=== PATIENT | male | born 1950 | race Caucasian/White ===

== ENCOUNTER 2016-07-30 10:21 | Outpatient (CLI) | payer OTHER | END 2016-07-30 10:22 | disposition home or self-care (01) | DX: Z51.81 Encounter for therapeutic drug level monitoring (principal); R53.83 Other fatigue ==

== ENCOUNTER 2016-08-29 10:49 | Outpatient (CLI) | payer OTHER, MEDICARE ==
[2016-08-29 14:02] LABS: CALCIUM 9.5 mg/dL (8.5-10.3); CREATININE 0.8 mg/dL (0.6-1.2); POTASSIUM 4.8 mmol/L (3.5-5.0)
== END 2016-08-29 23:59 | disposition home or self-care (01) ==
LOC: LAB.WCP 10:49
PROVIDERS: ATTEND Physician Assistant Medical
DX: Z51.81 Encounter for therapeutic drug level monitoring (principal)
CPT/HCPCS: 36415; 80048

== ENCOUNTER 2016-10-13 13:49 | Outpatient (CLI) | payer OTHER, MEDICARE | END 2016-10-13 13:50 | disposition home or self-care (01) | DX: G47.33 Obstructive sleep apnea (adult) (pediatric) (principal) ==

== ENCOUNTER 2016-12-11 13:35 | Outpatient (CLI) | payer OTHER, MEDICARE | END 2016-12-11 13:36 | disposition home or self-care (01) | LOC: SC 13:35 | PROVIDERS: ATTEND Nurse Practitioner Family | DX: G47.33 Obstructive sleep apnea (adult) (pediatric) (principal) | CPT/HCPCS: 99212; 99215 ==

== ENCOUNTER 2017-01-02 15:03 | Outpatient (CLI) | payer MEDICARE, OTHER ==
[2017-01-02 19:19] LABS: BASOPHILS % (AUTO) 0.6 %; EOSINOPHILS % (AUTO) 0.9 %; HCT - HEMATOCRIT 38.1 % (42.0-52.0); HGB - HEMOGLOBIN 12.8 g/dL (14.0-18.0); LYMPHOCYTES # (AUTO) 0.6 10^3/uL (1.5-3.5); LYMPHOCYTES % (AUTO) 11.8 %; MEAN CORPUSCULAR HEMOGLOBIN 30.7 pg (27.0-31.0); MEAN CORPUSCULAR HGB CONC 33.6 g/dL (32.0-36.0); MEAN CORPUSCULAR VOLUME 91.5 fL (80.0-94.0); MEAN PLATELET VOLUME 9.2 fL (7.4-11.4); MONOCYTES # (AUTO) 0.4 10^3/uL (0.0-1.0); MONOCYTES % (AUTO) 6.9 %; NEUTROPHILS # (AUTO) 4.3 10^3/uL (1.5-6.6); NEUTROPHILS % (AUTO) 79.8 %; NUCLEATED RED BLOOD CELLS AUTO 0.3 /100WBC; RED BLOOD COUNT 4.17 10^6/uL (4.70-6.10); RED CELL DISTRIBUTION WIDTH 13.3 % (12.0-15.0); UNCORRECTED WHITE BLOOD COUNT 5.4 x10^3/uL; WHITE BLOOD COUNT 5.4 x10^3/uL (4.8-10.8)
[2017-01-02 19:41] LABS: ALBUMIN/GLOBULIN RATIO 1.1 (1.0-2.2); BILIRUBIN,TOTAL 0.7 mg/dL (0.2-1.0); CALCIUM 9.4 mg/dL (8.5-10.3); POTASSIUM 4.4 mmol/L (3.5-5.0); TOTAL PROTEIN 7.7 g/dL (6.7-8.2)
== END 2017-01-02 15:04 | disposition home or self-care (01) ==
LOC: LAB.WCP 15:03
PROVIDERS: ATTEND Physician Assistant Medical
DX: Z51.81 Encounter for therapeutic drug level monitoring (principal)
CPT/HCPCS: 36415; 80053; 85025

== ENCOUNTER 2017-04-23 22:08 | Outpatient (CLI) | payer MEDICARE, OTHER | END 2017-04-23 22:09 | disposition home or self-care (01) | LOC: SC 22:08 | PROVIDERS: ATTEND Internal Medicine Pulmonary Disease | DX: G47.33 Obstructive sleep apnea (adult) (pediatric) (principal); G47.61 Periodic limb movement disorder | CPT/HCPCS: 95811 ==

== ENCOUNTER 2018-01-07 08:36 | Outpatient (CLI) | payer OTHER, MEDICARE ==
[2018-01-07 12:41] LABS: ALBUMIN 4.3 g/dL (3.2-5.5); ALBUMIN/GLOBULIN RATIO 1.5 (1.0-2.2); ALKALINE PHOSPHATASE 93 IU/L (42-121); ALT ALANINE AMINOTRANSFERASE 41 IU/L (10-60); AST ASPARTATE AMINOTRANSFERASE 33 IU/L (10-42); BILIRUBIN,TOTAL 0.8 mg/dL (0.2-1.0); BUN - BLOOD UREA NITROGEN 18 mg/dL (6-20); CALCIUM 9.2 mg/dL (8.5-10.3); CARBON DIOXIDE - CO2 30 mmol/L (21-32); CHLORIDE 101 mmol/L (101-111); CHOL/HDL RATIO 3.8 (<5.0); CHOLESTEROL 138 mg/dL; CREATININE 0.9 mg/dL (0.6-1.2); GFR - MDRD 84 (>89); GLUCOSE 143 mg/dL (70-100); HDL CHOLESTEROL 36 mg/dL; LDL CHOLESTEROL,CALCULATED 78 mg/dL; LDL/HDL RATIO 2.2 (<3.6); SODIUM 137 mmol/L (135-145); TOTAL PROTEIN 7.2 g/dL (6.7-8.2); VLDL CHOLESTEROL 24 mg/dL
[2018-01-07 13:02] LABS: BASOPHILS % (AUTO) 0.7 %; EOSINOPHILS # (AUTO) 0.1 10^3/uL (0.0-0.7); EOSINOPHILS % (AUTO) 1.9 %; LYMPHOCYTES % (AUTO) 21.9 %; MEAN CORPUSCULAR HEMOGLOBIN 32.3 pg (27.0-31.0); MEAN CORPUSCULAR HGB CONC 35.2 g/dL (32.0-36.0); MEAN CORPUSCULAR VOLUME 91.6 fL (80.0-94.0); MEAN PLATELET VOLUME 9.6 fL (7.4-11.4); MONOCYTES # (AUTO) 0.5 10^3/uL (0.0-1.0); MONOCYTES % (AUTO) 9.6 %; NEUTROPHILS # (AUTO) 3.1 10^3/uL (1.5-6.6); NEUTROPHILS % (AUTO) 65.9 %; PLT - PLATELET COUNT 152 10^3/uL (130-450); RED BLOOD COUNT 4.03 10^6/uL (4.70-6.10); RED CELL DISTRIBUTION WIDTH 13.7 % (12.0-15.0); WHITE BLOOD COUNT 4.8 x10^3/uL (4.8-10.8)
[2018-01-07 13:34] LABS: HB2 TOTAL 13.5 g/dL; HEMOGLOBIN A1C 0.64 g/dL; HEMOGLOBIN A1C % 6.5 % (4.6-6.2)
== END 2018-01-07 08:37 ==
LOC: LAB.WCP 08:36
PROVIDERS: ATTEND Family Medicine
DX: R74.8 Abnormal levels of other serum enzymes (principal); E78.5 Hyperlipidemia, unspecified; R73.09 Other abnormal glucose; K27.9 Peptic ulcer, site unspecified, unspecified as acute or chronic, without hemorrhage or perforation
CPT/HCPCS: 36415; 80053; 80061; 83036; 83721; 85025

== ENCOUNTER 2018-03-17 08:00 | Outpatient (CLI) | payer OTHER, MEDICARE ==
[2018-03-17 21:16] LABS: H. PYLORIS ANTIGEN STL NEGATIVE (Negative)
== END 2018-03-17 23:59 | disposition home or self-care (01) ==
LOC: LAB.WCP 08:00
PROVIDERS: ATTEND Physician Assistant
DX: R19.7 Diarrhea, unspecified (principal)
CPT/HCPCS: 81599; 83630; 87045; 87046; 87177; 87209; 87338; 87493; 89055

== ENCOUNTER 2018-06-07 08:00 | Outpatient (CLI) | payer OTHER, MEDICARE | END 2018-06-07 23:59 | disposition home or self-care (01) | LOC: LAB.R 08:00 | PROVIDERS: ATTEND Family Medicine | DX: Z51.81 Encounter for therapeutic drug level monitoring (principal); Z79.891 Long term (current) use of opiate analgesic | CPT/HCPCS: 80307; 80361; 80365; 81599 ==

== ENCOUNTER 2018-07-22 10:24 | Outpatient (CLI) | payer OTHER, MEDICARE ==
--- NOTE | 2018-07-22 10:43 | XRAY Report ---
Reason: ABDOMINAL PAIN Procedure Date: 07/22/2018 Accession Number: [id number] / [id number] Procedure: WCP - Abdomen 1 View X-Ray CPT Code: 26536 FULL RESULT: EXAM: ABDOMEN RADIOGRAPHY EXAM DATE: 07/22/2018 10:37 AM. CLINICAL HISTORY: ABDOMINAL PAIN. COMPARISON: ABDOMEN 1 VIEW 07/24/2017 8:25 AM. TECHNIQUE: 1 view. FINDINGS: Bowel Gas Pattern: Nonspecific small and large bowel gas pattern. Large amount of generalized retained stool. Other: None. IMPRESSION: 1. Large amount of generalized retained stool. 2. Otherwise negative examination. RADIA
== END 2018-07-22 10:25 | disposition home or self-care (01) ==
LOC: DI.WCP 10:24
PROVIDERS: ATTEND Family Medicine
DX: R10.9 Unspecified abdominal pain (principal)
CPT/HCPCS: 74018

== ENCOUNTER 2018-10-28 10:58 | Outpatient (CLI) | payer OTHER, MEDICARE | END 2018-10-28 10:59 | disposition home or self-care (01) | LOC: SC 10:58 | PROVIDERS: ATTEND Nurse Practitioner Family | DX: G47.33 Obstructive sleep apnea (adult) (pediatric) (principal); G47.61 Periodic limb movement disorder | CPT/HCPCS: 99212; 99215 ==

== ENCOUNTER 2018-11-12 08:00 | Outpatient (CLI) | payer OTHER, MEDICARE ==
[2018-11-12 18:54] LABS: BASOPHILS % (AUTO) 0.7 %; EOSINOPHILS # (AUTO) 0.1 10^3/uL (0.0-0.7); EOSINOPHILS % (AUTO) 2.2 %; LYMPHOCYTES # (AUTO) 0.9 10^3/uL (1.5-3.5); LYMPHOCYTES % (AUTO) 19.7 %; MEAN CORPUSCULAR HEMOGLOBIN 30.7 pg (27.0-31.0); MEAN CORPUSCULAR HGB CONC 32.6 g/dL (32.0-36.0); MEAN CORPUSCULAR VOLUME 94.3 fL (80.0-94.0); MEAN PLATELET VOLUME 12.1 fL (7.4-11.4); MONOCYTES # (AUTO) 0.5 10^3/uL (0.0-1.0); MONOCYTES % (AUTO) 11.1 %; NEUTROPHILS # (AUTO) 3.1 10^3/uL (1.5-6.6); NEUTROPHILS % (AUTO) 66.1 %; PLT - PLATELET COUNT 155 10^3/uL (130-450); RED BLOOD COUNT 4.23 10^6/uL (4.70-6.10); RED CELL DISTRIBUTION WIDTH 12.8 % (12.0-15.0); WHITE BLOOD COUNT 4.6 x10^3/uL (4.8-10.8)
[2018-11-12 19:09] LABS: ALBUMIN 4.1 g/dL (3.2-5.5); ALBUMIN/GLOBULIN RATIO 1.4 (1.0-2.2); BILIRUBIN,TOTAL 0.5 mg/dL (0.2-1.0); CALCIUM 9.4 mg/dL (8.5-10.3); CREATININE 0.9 mg/dL (0.6-1.2); TOTAL PROTEIN 7.1 g/dL (6.7-8.2)
== END 2018-11-12 08:01 | disposition home or self-care (01) ==
LOC: LAB.WCP 08:00
PROVIDERS: ATTEND Psychiatry & Neurology Neurology
DX: G35 Multiple sclerosis (principal)
CPT/HCPCS: 36415; 80053; 85025

== ENCOUNTER 2018-11-25 08:00 | Outpatient (CLI) | payer OTHER, MEDICARE ==
[2018-11-25 12:31] LABS: HEMOGLOBIN A1C 0.62 g/dL; HEMOGLOBIN A1C % 6.2 % (4.6-6.2)
[2018-11-25 12:47] LABS: ALBUMIN 4.2 g/dL (3.2-5.5); ALBUMIN/GLOBULIN RATIO 1.3 (1.0-2.2); ALKALINE PHOSPHATASE 82 IU/L (42-121); ALT ALANINE AMINOTRANSFERASE 29 IU/L (10-60); AST ASPARTATE AMINOTRANSFERASE 29 IU/L (10-42); BILIRUBIN,TOTAL 0.3 mg/dL (0.2-1.0); BUN - BLOOD UREA NITROGEN 24 mg/dL (6-20); CALCIUM 9.4 mg/dL (8.5-10.3); CARBON DIOXIDE - CO2 28 mmol/L (21-32); CHLORIDE 105 mmol/L (101-111); CHOL/HDL RATIO 3.1 (<5.0); CHOLESTEROL 122 mg/dL; GFR - MDRD 75 (>89); GLUCOSE 151 mg/dL (70-100); HDL CHOLESTEROL 39 mg/dL; LDL CHOLESTEROL,CALCULATED 46 mg/dL; LDL/HDL RATIO 1.2 (<3.6); SODIUM 141 mmol/L (135-145); TOTAL PROTEIN 7.4 g/dL (6.7-8.2); VLDL CHOLESTEROL 37 mg/dL
== END 2018-11-25 23:59 | disposition home or self-care (01) ==
LOC: LAB.WCP 08:00
PROVIDERS: ATTEND Family Medicine
DX: E11.9 Type 2 diabetes mellitus without complications (principal); E78.5 Hyperlipidemia, unspecified
CPT/HCPCS: 36415; 80053; 80061; 83036; 83721

== ENCOUNTER 2018-12-16 08:38 | Outpatient (CLI) | payer OTHER, MEDICARE ==
[2018-12-16 10:36] VITALS: BP 110/60
--- NOTE | 2018-12-16 10:36 | SLEEP CARE CONSULTATION ---
Information from patient questionnaire entered by Lillie Arthur. I have reviewed and concur with the information entered by Lillie Arthur. This document represents the service I personally performed and the decisions made by me, Althea Adan, RN, MSN, NURSING HOME DIRECTOR. History of Present Illness Previous diagnosis: Severe, Obstructive Sleep Apnea-Hypopnea Syndrome AHI: 46.5 Reason for CPAP/BiPAP follow up: other (2 month) Equipment type: BiPAP Equipment obtained from: [employer] (No supplies since transfer despite twice a week calls /with several explainations for delay even though now confirmed that insurance has authorized etc.) Mask style: Full face Mask brand: Resmed Backup mask available: No Last cushion change: 6 months ago HPI additional information: Patient voiced frustrations in trying to get his CPAP supplies updated with [facility] whom he transferred to since he had been getting his oxygen there since 2014. He has made calls a couple times a week with promise it will be taken care of. He is considering transferring to new company to get supplies. He is working on diet modification to lose weight as has gained 20 pounds since last seen at prior visit. His weight is stable with better diet choices but no weight loss. The BiPAP pressure was changed as recommended by the titration study. The pressure change is comfortable and able to sleep longer at times. CPAP Compliance Data - Data Reviewed with Patient Average duration of nightly device use: 5.75 Compliance rate %: 76.7 Current pressure setting (cmH2O): 23/17 Humidity settin Average residual AHI: 8.2 Central apnea: 5.5 Obstructive apnea: 1.1 Hypopnea: 1.6 Average large leak: 1 min 25 secs Subjective Missed days of use due to: reports: other (short nights due to exacerbation of nasal congestion with inability to use CPAP due to oral dryness from oral breathing. He has dry mouth 27/10. ) Patient concerns: reports: mask discomfort (from tightening old mask to control mask leaks), air blowing in eyes (forgot to use get eye cover, no worse with higher pressure. ), mask leak noise (wakes to noise 4-5 times a night from him waking or his spouse waking to leaks. ), nasal congestion (chronic), dry mouth, nose, throat (chronic worse with CPAP use ), other (So clean device has been helpful to patient ). denies: aerophagia, condensation in mask/hose, epistaxis Observed to snore while using device: No Current pressure setting perceived as: comfortable On therapy, patient: reports: sleeping better, awakening more refreshed (when able to get 8 hours of sleep. ), being more awake and alert during the day, more rested overall (but has residual fatigue). denies: drowsiness while driving Initial [place] Sleepiness Scale score: 13 Current [place] Sleepiness Scale score: 8 Allergies and Home Medications Allergy and home medication list: Medication Name (generic/name brand) Strength & Dosage Terazosin 10mg cap 1 at bedtime Baclofen 10mg tab 1 three times daily for muscle spasm Lyrica 200mg cap 1 three times daily Lipitor 20mg tab 1 at bedtime Venlafaxine HCL ER 225mg tab 1 daily Omeprazole 20mg cap 1 daily Zofran 4mg tab 1 every 6 hrs as needed for nausea Ibuprofen 200mg tab 2-3 every 6 hrs as needed for pain Tylenol 325mg tab 2 three times daily as needed for pain or fever Hydromorphone HCL 4mg tab 2 twice daily for chronic pain Maxalt 10mg tab as direct, no more than 2 daily Afrin nasal spray As needed Lidocaine HCL As directed via IV every 5 days Ketamine HCL 50mg/ml via IV every 7 days Symbicort 160-4.5 mcg/act 2 puffs twice daily Albuterol Sulfate 0.083% 1 ampule 1 times daily as needed for SOB Mucinex As needed Allergy List Perfume Seasonal allergies Adhesive Tape Review of Systems Review of systems same as previous: Yes Physical Exam Blood Pressure: 110/60 Cuff size: long Heart Rate: 85 O2 Saturation: 96 (on 2 liters per nasal cannual ) Weight (kg): 265 lb Impression and Plan 1. Obstructive Sleep Apnea-Hypopnea Syndrome,severe , with good treatment compliance and mildly elevated residual AHI. On BiPAP therapy, the patient has better sleep quality and is more rested overall. For oral dryness that is interferring with BiPAP use, I again reviewed dryness products and gave a note with names. He believes some of oral dryness is due to oral breathing due to nasal congestion. He is to discuss with his dentist on best oral dryness product to use and given reminder note. For nasal congestion, he uses sinus rinse and a variety of nasal sprays. The sinus rinse seems to work the best but only remembers to do 2-3 times a week. He is advised to try to do this nightly and perhaps in the morning to reduce nasal congestion and oral breathing. Since he reports nasal drainage for a while after sinus rinse, he wants to incorporate earlier in evening, thus advised to complete after dinner so more comfortable with sinus drainage by bedtime. He can also add morning rinse after breakfast for same reason. He is also to discuss his nasal congestion with new PCP to see if another nasal spray medication product better than previously tried. Oral dryness with BiPAP could also be due inability to use the humidity of his BiPAP due to leaking humidifier. Patient has been unable to get updated supplies since May despite transfer to [facility] and repeated calls. It is unclear when he will get new supplies. I will have product inspection coordinator reach out to [facility]. Otherwise, patient wants to transfer to new [facility]. Because of difficulty getting supplies, I completed a mask refitting with sample mask as current mask uncomfortable, leaking into eyes causing eye irritation.The Acquisiowear full face mask sits lower on nose and seemed more comfortable to patient than current mask with a medium wide cushion. He is instructed not to overtighten and greg best fit when home. A prescription for refill was written. For elevated residual AHI, mostly centrals, I will reduce BiPAP pressure to [id number]/[id number]. He is to contact me if pressure is uncomfortable. So far the higher pressure range has allowed him to sleep longer. Patient's apnea severity and rationale for treatment to reduce apnea, improve sleep quality and reduce cardiovascular and cerebrovascular events was reviewed. I also reviewed the benefit of consistent device use of BiPAP for depression. . I again reviewed health risks of obesity and his weight to apnea management. His change in eating healthier has maintained his weight but now he is advised to work on reducing portions. * Change BiPAP pressure to 22/16 cmH2O * Notify me if snoring with mask or feeling that the pressure is too much or too little * Attempt to lose weight - portion control * Follow up with PCP in regard to nasal congestion * Follow with dentist re oral dryness * Return for follow up in 2 months, or sooner if concerns arise * * Addendum: My Discharge coodinator was able to contact [facility] and assured patient would obtain supplies. Their supply prescription was faxed and signed by me. I spent 100% of this 50 minute visit face to face with the patient with greater than 50% of this was spent time counseling the patient and coordination of care.
== END 2018-12-16 08:39 | disposition home or self-care (01) ==
LOC: SC 08:38
PROVIDERS: ATTEND Nurse Practitioner Family
DX: G47.33 Obstructive sleep apnea (adult) (pediatric) (principal)
CPT/HCPCS: 99212; 99215

== ENCOUNTER 2019-02-17 09:16 | Outpatient (CLI) | payer OTHER, MEDICARE ==
[2019-02-17 10:29] VITALS: BP 140/70
--- NOTE | 2019-02-17 10:29 | SLEEP CARE CONSULTATION ---
Information from patient questionnaire entered by Lillie Arthur. I have reviewed and concur with the information entered by Lillie Arthur. This document represents the service I personally performed and the decisions made by me, Althea Adan, RN, MSN, CURRICULUM COORDINATOR. History of Present Illness Previous diagnosis: Severe, Obstructive Sleep Apnea-Hypopnea Syndrome AHI: 46.5 Reason for follow up: other (2 month) Equipment type: BiPAP Equipment obtained from: [employer] Mask style: Full face Mask brand: Resmed HPI additional information: He did discuss oral dryness with dentist and ordered the product online with some benefit only. He has been using sinus rinse most days with benefit. He has reduced nasal sprays due to nasal irritation and nose bleed. This practice has lessened occurrence to weekly. He uses a nasal cream most days for dryness. Other days he uses Vicks nasal cream occasionally to help with nasal congestion. He talked to PCP - re nasal congestion, no changes. ENT is next if indicated. He had to switch back to old mask style as the PocketSuitewear full face mask was too noisy for spouse but he liked the fit better. He was just sent the Air fit full face mask. The eye mask has reduced eye irritation from mask irritation. CPAP Compliance Data - Data Reviewed with Patient Average duration of nightly device use: 5.5 Compliance rate %: 60 (60 days) Current pressure setting (cmH2O): 22/16 Humidity settin Heated hose settin Average residual AHI: 6.6 Central apnea: 4.2 Obstructive apnea: 1.0 Hypopnea: 1.4 Subjective Missed days of use due to: reports: illness (gastrointenstinal virus / intermittent diarrhea a few days - evaluated - no cause. ) Patient concerns: reports: air blowing in eyes (reduced with eye mask ), nasal congestion (chronic), dry mouth, nose, throat. denies: aerophagia, mask discomfort, mask leak noise, condensation in mask/hose, epistaxis Observed to snore while using device: No Current pressure setting perceived as: comfortable On therapy, patient: reports: sleeping better, awakening more refreshed, being more awake and alert during the day, more rested overall. denies: drowsiness while driving Initial [place] Sleepiness Scale score: 13 Current [place] Sleepiness Scale score: 10 Allergies and Home Medications Known drug allergies: No Home medication list reviewed: Yes Allergy and home medication list: Terazosin 10mg cap 1 at bedtime Baclofen 10mg tab 1 three times daily for muscle spasm Lyrica 200mg cap 1 three times daily Lipitor 20mg tab 1 at bedtime Venlafaxine HCL ER 225mg tab 1 daily Omeprazole 20mg cap 1 daily Zofran 4mg tab 1 every 6 hrs as needed for nausea Ibuprofen 200mg tab 2-3 every 6 hrs as needed for pain Tylenol 325mg tab 2 three times daily as needed for pain or fever Hydromorphone HCL 4mg tab 2 twice daily for chronic pain Maxalt 10mg tab as direct, no more than 2 daily Afrin nasal spray As needed Lidocaine HCL As directed via IV every 5 days Ketamine HCL 50mg/ml via IV every 7 days Symbicort 160-4.5 mcg/act 2 puffs twice daily Albuterol Sulfate 0.083% 1 ampule 1 times daily as needed for SOB Mucinex As needed Allergy List Perfume Adhesive Tape Seasonal allergies Review of Systems Review of systems same as previous: No (changes in blood studies from ) Physical Exam Blood Pressure: 140/70 Cuff size: long Heart Rate: 89 O2 Saturation: 98 (on 2 liters oxygen) Height: 5 ft 11 in Weight: 264 lb Body Mass Index: 36.8 BMI Classification: Obesity Class 2 Impression and Plan 1. Obstructive Sleep Apnea-Hypopnea Syndrome, severe, with fair treatment compliance due to illness and better apnea control. On BiPAP therapy, the patient has better sleep quality and is more rested overall. HIs residual AHI is lower with lower BiPAP pressure. I will continue to lower range to reduce the central apneas to 20/[id number].. He is to contact me if pressure change uncomfortable. For severe oral dryness, I showed him how to increase the humidity and only increase heated hose if condensation on a sample device. Web printed instructions given and discussed rationale for changing settings. I showed him how he has changed settings in past on his complaince report and how it affects his symptoms. The higher humidity can also help reduce his nasal congestion. The lower pressure should reduce mask leaks as well. It is hoped his new mask will also help. His favorite Dreamwear fullface mask that is too noisy for spouse will be put on his old BiPAP in guest room to use when he needs to sleep separately due to discomfort. Patient's apnea severity and rationale for treatment to reduce apnea, improve sleep quality and reduce cardiovascular and cerebrovascular events was reviewed. I also reviewed the benefit of consistent device use of BiPAP for his depression/anxiety, and his pain management. 2. Hypoxemia. Patient has oxygen bled into his BiPAP at 5 liters per minute. He uses oxygen 24 hours a day and the liters are reduced to 2 liters during waking hours. I will order an overnight pulse oximetry with his new BiPAP pressure to check efficacy. * * Change BiPAP pressure to 20/14 cmH2O * Adjust humidity and heated hose. * Overnight pulse oximetry with BiPAP new pressure and oxygen at 5 liters ( n ight use- 2 liters when not sleeping0 * Notify me if snoring with mask or feeling that the pressure is too much or too little * Attempt to lose weight * Return for follow up in 2 months , or sooner if concerns arise I spent 100% of this 43 minute visit face to face with the patient with greater than 50% of this was spent time counseling the patient and coordination of care.
== END 2019-02-17 09:17 | disposition home or self-care (01) ==
LOC: SC 09:16
PROVIDERS: ATTEND Nurse Practitioner Family
DX: G47.33 Obstructive sleep apnea (adult) (pediatric) (principal); R09.02 Hypoxemia
CPT/HCPCS: 99212; 99215

== ENCOUNTER 2019-04-21 10:48 | Outpatient (CLI) | payer OTHER, MEDICARE ==
[2019-04-21 11:53] VITALS: BP 120/80
--- NOTE | 2019-04-21 11:53 | SLEEP CARE CONSULTATION ---
Information from patient questionnaire entered by Lillie Arthur. I have reviewed and concur with the information entered by Lillie Arthur. This document represents the service I personally performed and the decisions made by me, Althea Adan, RN, MSN, PLUGGING MACHINE OPERATOR. History of Present Illness Previous diagnosis: Severe, Obstructive Sleep Apnea-Hypopnea Syndrome AHI: 46.5 Reason for follow up: other (2 month ) Equipment type: BiPAP Equipment obtained from: [employer] Mask style: Full face Mask brand: Resmed HPI additional information: The new BiPAP pressure was more comfortable to use and has reduced eye irritation significantly. He has noted since his rhinoplasty he can feel air blow into his eyes when he blows his nose hard. Thus he was noting increase of air leak into eyes with higher pressure. He adjusted his humidity to maximum and his heated hose higher with recent snow weather. He has noted less dryness symptoms. CPAP Compliance Data - Data Reviewed with Patient Average duration of nightly device use: 6.2 Compliance rate %: 78.3 (60 days) Current pressure setting (cmH2O): 20/14 Humidity settin Heated hose settin Average residual AHI: 9.2 Central apnea: 4.8 Obstructive apnea: 2.5 Hypopnea: 1.9 Average large leak: zero On Oxygen: Yes (2 liters day / 5 liters nocturnal with BiPAP) Oxygen usage: Continuous Subjective Missed days of use due to: reports: illness (due to nasal congestion but even with oral dryness and full face mask - unable to tolerate) Patient concerns: reports: air blowing in eyes (occasional now - wears a eye mask ), nasal congestion (chronic affecting CPAP use, not always assisted with saline or Afrin nasal spray ( aware not to use Afrin more than 3 days). ), dry mouth, nose, throat (mild to moderate - no longer severe ). denies: aerophagia, mask discomfort, mask leak noise, condensation in mask/hose, epistaxis Observed to snore while using device: No Current pressure setting perceived as: comfortable On therapy, patient: reports: sleeping better, awakening more refreshed, being more awake and alert during the day, more rested overall (with underlying fatigue. ) Initial [place] Sleepiness Scale score: 13 Current [place] Sleepiness Scale score: 11 Allergies and Home Medications Known drug allergies: Yes (tape ) Home medication list reviewed: Yes ( 3 added that not present on past visit list noted below/no other changes ) Allergy and home medication list: Medications same as last visit with addition of the following which were not included but patient states has been on. Tecfidera 240mg bid finasteride 5mg daily aspirin 81mg daily multivitamin with iron ( PCP aware - patient aware to take only if deficient in iron) Review of Systems Review of systems same as previous: Yes Physical Exam Blood Pressure: 120/80 Cuff size: long Heart Rate: 73 O2 Saturation: 97 (on 2 liters of oxygen continuously ) Height: 5 ft 11 in Weight: 270 lb 9.6 oz Weight change since last visit: gained 6 pounds Body Mass Index: 37.7 BMI Classification: Obesity Class 2 Impression and Plan 1. Obstructive Sleep Apnea-Hypopnea Syndrome, severe, with good treatment compliance and slightly elevated residual AHI. On BiPAP therapy, the patient has better sleep quality and is more rested overall. The BiPAP pressure is more comfortable at this pressure in air flow and by significantly reducing eye irritation so I will not adjust further. For his oral dryness, until he can update his BiPAP in late November which has a better humidity system, I discussed how he could turn off the heated hose if no condensation to allow the humidity setting higher to 4-5. Recent adjustments have reduced his oral dryness from severe to mild- moderate. Since his nasal congestion affecting BiPAP use intermittently and current treatments and medications not always helpful, I advised him to follow up with PCP to discuses other medication options. He has appointment tomorrow and will discuss then. Until then on the nights of exacerbation of nasal congestion he is to try the higher humidity setting with no heated hose and / steamy shower. Patient's apnea severity and rationale for treatment to reduce apnea, improve sleep quality and reduce cardiovascular and cerebrovascular events was reviewed. I also reviewed the benefit of consistent device use of CPAP for depression and pain management. To reduce time in recording of medications at patient intake, he is advised to make a printed copy to take to his providers for ease of review for changes. He agreed with plan. 2. Hypoxemia, patient uses oxygen at 2 liters per nasal cannula while awake and at 5 liters while asleep with BiPAP. The over night pulse oximetry was not completed as ordered at last visit . I will again order and have patient contact this office if no response from [facility]. * Continue CPAP pressure at BiPAP pressure at 20/14 cmH2O * Update Bipap in 6 months at next follow up * Over night pulse oximetry with BiPAP / O2 * Implement methods to reduce nasal congestion. * Follow up with PCP for further evaluation of nasal congestion and treatment * Notify me if snoring with mask or feeling that the pressure is too much or too little * Attempt to lose weight * Call this office if any problems using CPAP * Return for follow up in 6 months , or sooner if concerns arise Time Spent with Patient (minutes): 40 I spent 100% of this visit face to face with the patient with greater than 50% of this was spent time counseling the patient and coordination of care.
== END 2019-04-21 10:49 | disposition home or self-care (01) ==
LOC: SC 10:48
PROVIDERS: ATTEND Nurse Practitioner Family
DX: G47.33 Obstructive sleep apnea (adult) (pediatric) (principal); R09.02 Hypoxemia; E66.9 Obesity, unspecified; Z68.37 Body mass index [BMI] 37.0-37.9, adult
CPT/HCPCS: 99212; 99215

== ENCOUNTER 2019-04-22 08:00 | Outpatient (CLI) | payer OTHER, MEDICARE ==
[2019-04-22 18:32] LABS: BASOPHILS % (AUTO) 0.5 %; EOSINOPHILS # (AUTO) 0.1 10^3/uL (0.0-0.7); EOSINOPHILS % (AUTO) 2.5 %; HGB - HEMOGLOBIN 13.4 g/dL (14.0-18.0); MEAN CORPUSCULAR HEMOGLOBIN 30.6 pg (27.0-31.0); MEAN CORPUSCULAR HGB CONC 32.6 g/dL (32.0-36.0); MEAN CORPUSCULAR VOLUME 93.8 fL (80.0-94.0); MEAN PLATELET VOLUME 11.1 fL (7.4-11.4); MONOCYTES # (AUTO) 0.4 10^3/uL (0.0-1.0); MONOCYTES % (AUTO) 7.9 %; NEUTROPHILS % (AUTO) 71.7 %; PLT - PLATELET COUNT 188 10^3/uL (130-450); RED BLOOD COUNT 4.38 10^6/uL (4.70-6.10); RED CELL DISTRIBUTION WIDTH 12.8 % (12.0-15.0); WHITE BLOOD COUNT 5.6 x10^3/uL (4.8-10.8)
[2019-04-22 19:00] LABS: ALBUMIN 4.4 g/dL (3.2-5.5); ALBUMIN/GLOBULIN RATIO 1.4 (1.0-2.2); BILIRUBIN,TOTAL 0.5 mg/dL (0.2-1.0); CALCIUM 9.3 mg/dL (8.5-10.3); CREATININE 1.1 mg/dL (0.6-1.2); TOTAL PROTEIN 7.6 g/dL (6.7-8.2)
== END 2019-04-22 23:59 | disposition home or self-care (01) ==
LOC: LAB.WCP 08:00
PROVIDERS: ATTEND Nurse Practitioner Family
DX: Z51.81 Encounter for therapeutic drug level monitoring (principal); Z79.899 Other long term (current) drug therapy
CPT/HCPCS: 36415; 80053; 85025

== ENCOUNTER 2019-10-06 10:45 | Outpatient (CLI) | payer OTHER, MEDICARE ==
--- NOTE | 2019-10-06 12:28 | XRAY Report ---
Reason: DYSPNEA ON EXERTION Procedure Date: 10/06/2019 Accession Number: [id number] / [id number] Procedure: WCP - Chest 2 View X-Ray CPT Code: 66930 Final Report FULL RESULT: PROCEDURE: Chest 2 View X-Ray INDICATIONS: DYSPNEA ON EXERTION TECHNIQUE: 2 view(s) of the chest. COMPARISON: None. FINDINGS: Surgical changes and devices: Left tunneled port device is in place. Lungs and pleura: No pleural effusions or pneumothorax. Lungs are clear. Mediastinum: Mediastinal contours are normal. Heart size is normal. Bones and chest wall: No suspicious bony abnormalities. Soft tissues appear unremarkable. IMPRESSION: Chest without acute cardiopulmonary abnormalities. No focal consolidation. Reviewed by: Garo Park MD on 10/06/2019 12:27 PM PDT Approved by: Garo Park MD on 10/06/2019 12:27 PM PDT Station ID: [id number]
== END 2019-10-06 23:59 | disposition home or self-care (01) ==
LOC: DI.WCP 10:45
PROVIDERS: ATTEND Family Medicine
DX: R06.09 Other forms of dyspnea (principal)
CPT/HCPCS: 71046

== ENCOUNTER 2019-10-18 14:38 | Outpatient (CLI) | payer OTHER, MEDICARE ==
[2019-10-18] MEDS ORDERED: IOVERSOL 320 100 ML VIAL IVP ONE ×2 (14:50→16:03)
[2019-10-18] MEDS ORDERED: IOVERSOL 320 50 ML VIAL ONE (14:50)
[2019-10-18] MEDS ORDERED: IOVERSOL 320 50 ML VIAL PO ONE (16:02)
--- NOTE | 2019-10-18 17:37 | CT Report ---
PROCEDURE: ANGIO CHEST W/WO INDICATIONS: DYSPNEA CONTRAST: IV CONTRAST: Optiray 320 ml: 100 PO CONTRAST: Optiray 320 ml50 TECHNIQUE: After the administration of intravenous contrast, 2 mm thick sections acquired from the pulmonary api ronnie to the posterior costophrenic angles. 3-dimensional maximum intensity projection (MIP) coronal a nd sagittal reformats were then acquired through the thorax. For radiation dose reduction, the follow ing was used: automated exposure control, adjustment of mA and/or kV according to patient size. COMPARISON: CT chest 01/30/2016, chest x-ray 10/06/2019 FINDINGS: Image quality: Excellent. Pulmonary arteries: Pulmonary arteries are normal in size, and demonstrate no intraluminal filling d efects to suggest central pulmonary embolism. Lungs and pleura: Minimal chronic appearance of peripheral reticular opacities are present. There is an ill-defined nodularity within the medial left lower lobe on series 7 image 198. Although mild fior on was present within this region on prior exam, it is felt to have been present and is relatively un changed. No pleural effusions or pneumothorax. Central and peripheral airways are patent. Mediastinum: Heart size is normal, without pericardial effusion. No mediastinal or hilar adenopathy . Thoracic aorta is normal in caliber and enhancement. Esophagus is normal in caliber, with mild hi atal hernia. Bones and chest wall: No suspicious bony lesions. Ribs and thoracic spine appear intact throughout. The thyroid is normal. No axillary or supraclavicular adenopathy. Abdomen: Visualized upper abdominal solid organs appear normal in the early arterial phase of enhanc ement. IMPRESSION: 1. No pulmonary embolism identified. 2. Mild appearance of chronic reticular opacities suggestive of interstitial lung disease. 3. No consolidations or effusions. 4. Medial left lower lobe nodular opacity as above. While this appears likely to been present on prio r exam, due to motion, small changes are unable to be identified. Recommend three-month interval foll ow-up to document stability. Reviewed by: Angie Mckay MD on 10/18/2019 5:35 PM PDT Approved by: Angie Mckay MD on 10/18/2019 5:35 PM PDT Station ID: [id number]
--- NOTE | 2019-10-18 17:55 | CT Report ---
PROCEDURE: Abdomen/Pelvis W INDICATIONS: DYSPNEA CONTRAST: IV CONTRAST: Optiray 320 ml: 100 PO CONTRAST: Optiray 320 ml50 TECHNIQUE: After the administration of oral and intravenous contrast, 5 mm thick sections acquired from the diap hragms to the symphysis. 5 mm thick coronal and sagittal reformats were acquired. For radiation dos e reduction, the following was used: automated exposure control, adjustment of mA and/or kV accordin g to patient size. COMPARISON: None. FINDINGS: Image quality: Excellent. ABDOMEN: Lung bases: Separately reported on chest CT. Solid organs: Liver and spleen are normal in size and enhancement. Gallbladder is unremarkable Markos iary system is non dilated. Pancreas enhances normally. No adrenal nodules. Kidneys demonstrate no rmal size and enhancement, without hydronephrosis. Peritoneum and bowel: Bowel loops demonstrate normal wall thickness and caliber. Increased quantity of solid stool throughout colon and rectum. No free fluid or air. Nodes and vessels: No retroperitoneal or mesenteric adenopathy by size criteria. Aorta and inferior vena cava are normal in size. Miscellaneous: No ventral hernias. PELVIS: Genitourinary: Bladder wall thickness is normal. Miscellaneous: No inguinal hernias or adenopathy. Bones: No suspicious bony lesions. Near complete degenerative disc height loss at the L4-5 level. N o vertebral body compression fractures. IMPRESSION: 1. Increased quantity of solid stool throughout the colon may reflect obstipation. 2. No other acute process in the abdomen or pelvis. Reviewed by: Luz Rajan MD on 10/18/2019 5:54 PM PDT Approved by: Luz Rajan MD on 10/18/2019 5:54 PM PDT Station ID: [id number]
== END 2019-10-18 14:39 | disposition home or self-care (01) ==
LOC: DI 14:38
PROVIDERS: ATTEND Physician Assistant
DX: R06.00 Dyspnea, unspecified (principal); R10.30 Lower abdominal pain, unspecified; K43.9 Ventral hernia without obstruction or gangrene
CPT/HCPCS: 71275; 74177; Q9967

== ENCOUNTER 2019-11-14 12:02 | Day surgery (SDC) | payer OTHER, MEDICARE ==
[2019-11-14] MEDS ORDERED: KETAMINE 500 MG/10 ML VIAL IVP ONE (12:03)
[2019-11-14] MEDS ORDERED: MIDAZOLAM 2 MG/2 ML VIAL IVP ONE (12:03)
[2019-11-14] MEDS ORDERED: PROPOFOL 200 MG/20 ML VIAL IVP ONE (12:03)
[2019-11-14] MEDS ORDERED: LACTATED RINGERS 1,000 ML IV ONE ×2 (12:08→14:40)
[2019-11-14] MEDS ORDERED: LIDO GARGLE 30 ML BOTTLE ONE (13:33)
--- NOTE | 2019-11-14 13:35 | ANESTHESIA ---
Pre-Anesthesia VS, & Labs - Diagnosis gi bleed - Procedure egd/cscope Vital Signs: Temp Pulse Resp BP Pulse Ox 36 C L 99 16 153/96 H 98 11/14/19 12:12 11/14/19 12:12 11/14/19 12:12 11/14/19 12:12 11/14/19 12:12 Height 5 ft 11 in Weight (kg) 77.11 kg Body Mass Index 37.7 - NPO >8 hours Home Medications and Allergies Ketamine [Ketalar] 100 mg IJ ONCE 09/12/12 Terazosin [Hytrin] 10 mg PO QPM 09/12/12 Venlafaxine [Effexor] 225 mg PO DAILY 09/12/12 Baclofen [Lioresal] 10 mg PO TID 04/04/13 Lidocaine HCl/D5w/Pf [Lidocaine 0.4% in D5w Soln] 4 mg IV ONCE 04/04/13 Oxycodone HCl/Acetaminophen [Percocet 5-325 mg Tablet] 1 each PO Q6H PRN 04/04/13 Rizatriptan Benzoate [Maxalt] 10 mg PO DAILY 04/04/13 Ubidecarenone [Coenzyme Q10] 100 gm MC DAILY 04/04/13 ALPRAZolam [Alprazolam] 0.5 mg PO ONCE PRN 10/25/14 Albuterol Sulfate [Ventolin Hfa] 2 puffs IH Q4H PRN 10/25/14 Azelastine HCl [Astelin] 137 mcg NS BID 10/25/14 Cetirizine HCl [Aller-Jean Claude] 10 mg PO BID 10/25/14 Hydromorphone HCl [Hydromorphone ER] 16 mg PO DAILY 10/25/14 Ketoconazole 1 applic TP BID 10/25/14 Pregabalin [Lyrica] 100 mg PO TID 10/25/14 Atorvastatin Calcium [Lipitor] 20 mg PO QPM 10/26/14 Calcium & Magnesium Carbonate [Antacid Gelatin Caplet] 2 each PO DAILY 10/26/14 Cholecalciferol (Vitamin D3) [Vitamin D3] 5,000 unit PO DAILY 10/26/14 Chondroitin Sulfate A [Chondroitin Sulfate] 1,500 mg PO DAILY 10/26/14 Evening Mckee Oil [Evening Mckee] 1,000 mg PO DAILY 10/26/14 Iron,Carb/Vit C/Vit B12/Folic [Iron 100 Plus Tablet] 1 tab PO DAILY 10/26/14 Phytosterol Combination No.1 [Cholest Care] 1,000 mg PO DAILY 10/26/14 Safflower Oil/Linoleic Acid,Co [Cla 1,000 mg Softgel] 1,000 mg PO DAILY 10/26/14 Saw/Vit E/Sod Elizabeth/Lyc/Beta/Pyg [Prostate Health Caplet] 1 each PO DAILY 10/26/14 Allergies/Adverse Reactions: Allergies Allergy/AdvReac Type Severity Reaction Status Date / Time tape AdvReac Intermediate Rash Uncoded 10/25/14 09:48 Anes History & Medical History - Anesthetic History Anesthesia Complications: reports: No previous complications Family history of Anesthesia Complications: Denies Family history of Malignant Hyperthermia: Denies - Medical History Cardiovascular: reports: None, Other Pulmonary: reports: Asthma, COPD, Shortness of breath, Sleep apnea Gastrointestinal: reports: GERD, Other Urinary: reports: Benign prostate hypertrophy, Retention, Frequency Musculoskeletal: reports: Osteoarthritis, Fibromyalgia, Fatigue, Chronic back pain Endocrine/Autoimmune: reports: None Blood Disorders: reports: None Skin: reports: Other Smoking Status: Former smoker - Surgical History General: Colonoscopy, EGD Eyes Ears Nose Throat (EENT): Tonsil/Adenoidectomy Cardiothoracic: Other Orthopedic: Rotator cuff repair, Spine surgery Exam General: Alert, Oriented x3, Cooperative Dental: WNL Mouth Openin Fingerbreadth Neck Mobility: Normal Mallampati classification: II Thyromental Distance: greater than 6 cm Respiratory: Lungs clear (home o2), Normal breath sounds Cardiovascular: Regular rate Neurological: Normal speech Mental/Cognitive Status: Alert/Oriented X3, Normal for patient Cognitive Status: Within normal limits Plan Anesthesia Type: MAC Consent for Procedure(s) Verified and Reviewed: Yes Code Status: Attempt Resuscitation ASA classification: 3-Severe systemic disease Is this case an emergency?: No
[2019-11-14] MEDS ORDERED: LIDO GARGLE 30 ML BOTTLE PO ONE (13:40)
[2019-11-14] MEDS ORDERED: BENZOCAINE/TETRACAINE/BUTAMBEN 20 GM TOP ONE (13:42)
[2019-11-14 15:00] VITALS: BP 149/71
--- NOTE | 2019-11-15 10:14 | ANESTHESIA POST OP EVALUATION ---
Anesthesia Post Eval - Post Anesthesia Eval Vitals: Last Vital Signs Temp 36.4 C L 11/14/19 14:59 Pulse 62 11/14/19 14:59 Resp 12 11/14/19 14:59 BP 149/71 H 11/14/19 14:59 Pulse Ox 97 11/14/19 14:59 CV Function Including HR & BP: positive: Stable Pain Control: positive: Satisfactory Nausea & Vomiting: positive: Negative Mental Status: positive: Baseline Respiratory Status: Airway Patent Hydration Status: Satisfactory Anesthesia Complications: positive: None
== END 2019-11-14 12:03 | disposition home or self-care (01) ==
LOC: SDS 12:02
PROVIDERS: ATTEND Surgery
PROC: 0DB68ZX Excision of Stomach, Via Natural or Artificial Opening Endoscopic, Diagnostic (ICD-10-PCS; principal; 2019-11-14 14:30)
PROC: 0DJD8ZZ Inspection of Lower Intestinal Tract, Via Natural or Artificial Opening Endoscopic (ICD-10-PCS; 2019-11-14 14:30)
DX: D50.9 Iron deficiency anemia, unspecified (principal); K29.70 Gastritis, unspecified, without bleeding; K57.30 Diverticulosis of large intestine without perforation or abscess without bleeding; K21.9 Gastro-esophageal reflux disease without esophagitis; E11.9 Type 2 diabetes mellitus without complications; J44.9 Chronic obstructive pulmonary disease, unspecified; R91.1 Solitary pulmonary nodule; R09.02 Hypoxemia; G47.33 Obstructive sleep apnea (adult) (pediatric); G35 Multiple sclerosis; J32.9 Chronic sinusitis, unspecified; N40.1 Benign prostatic hyperplasia with lower urinary tract symptoms; R33.8 Other retention of urine; R35.0 Frequency of micturition; E78.5 Hyperlipidemia, unspecified; G89.4 Chronic pain syndrome; M54.9 Dorsalgia, unspecified; M79.7 Fibromyalgia; R53.82 Chronic fatigue, unspecified; K59.2 Neurogenic bowel, not elsewhere classified; Z87.891 Personal history of nicotine dependence; Z99.81 Dependence on supplemental oxygen; Z79.82 Long term (current) use of aspirin; Z79.891 Long term (current) use of opiate analgesic; Z79.51 Long term (current) use of inhaled steroids
CPT/HCPCS: 43239; 45378; A9270; J7120

== ENCOUNTER 2020-01-06 09:37 | Outpatient (CLI) | payer OTHER, MEDICARE ==
[2020-01-06 11:51] LABS: BASOPHILS % (AUTO) 0.4 %; EOSINOPHILS # (AUTO) 0.2 10^3/uL (0.0-0.7); EOSINOPHILS % (AUTO) 5.1 %; HGB - HEMOGLOBIN 12.7 g/dL (14.0-18.0); LYMPHOCYTES # (AUTO) 0.9 10^3/uL (1.5-3.5); LYMPHOCYTES % (AUTO) 19.1 %; MEAN CORPUSCULAR HEMOGLOBIN 31.1 pg (27.0-31.0); MEAN CORPUSCULAR HGB CONC 32.6 g/dL (32.0-36.0); MEAN CORPUSCULAR VOLUME 95.4 fL (80.0-94.0); MEAN PLATELET VOLUME 11.6 fL (7.4-11.4); MONOCYTES # (AUTO) 0.5 10^3/uL (0.0-1.0); MONOCYTES % (AUTO) 9.9 %; NEUTROPHILS # (AUTO) 3.1 10^3/uL (1.5-6.6); NEUTROPHILS % (AUTO) 65.3 %; PLT - PLATELET COUNT 147 10^3/uL (130-450); RED BLOOD COUNT 4.09 10^6/uL (4.70-6.10); RED CELL DISTRIBUTION WIDTH 12.6 % (12.0-15.0); WHITE BLOOD COUNT 4.7 x10^3/uL (4.8-10.8)
[2020-01-06 12:21] LABS: ALBUMIN 4.4 g/dL (3.2-5.5); ALBUMIN/GLOBULIN RATIO 1.5 (1.0-2.2); ALKALINE PHOSPHATASE 80 IU/L (42-121); ALT ALANINE AMINOTRANSFERASE 33 IU/L (10-60); AST ASPARTATE AMINOTRANSFERASE 28 IU/L (10-42); BILIRUBIN,TOTAL 0.6 mg/dL (0.2-1.0); BUN - BLOOD UREA NITROGEN 18 mg/dL (6-20); CALCIUM 9.3 mg/dL (8.5-10.3); CARBON DIOXIDE - CO2 31 mmol/L (21-32); CHLORIDE 101 mmol/L (101-111); CHOL/HDL RATIO 3.1 (<5.0); CHOLESTEROL 114 mg/dL; CREATININE 1.1 mg/dL (0.6-1.2); GLUCOSE 138 mg/dL (70-100); HDL CHOLESTEROL 37 mg/dL; HEMOGLOBIN A1c% 6.3 % (4.27-6.07); LDL CHOLESTEROL,CALCULATED 46 mg/dL; LDL/HDL RATIO 1.2 (<3.6); SODIUM 138 mmol/L (135-145); TOTAL PROTEIN 7.3 g/dL (6.7-8.2); VLDL CHOLESTEROL 31 mg/dL
== END 2020-01-06 23:59 | disposition home or self-care (01) ==
LOC: LAB.WCP 09:37
PROVIDERS: ATTEND Physician Assistant
DX: E11.9 Type 2 diabetes mellitus without complications (principal); E78.5 Hyperlipidemia, unspecified; Z12.5 Encounter for screening for malignant neoplasm of prostate
CPT/HCPCS: 36415; 80053; 80061; 83036; 83721; 84153; 85025

== ENCOUNTER 2020-03-06 09:43 | Outpatient (CLI) | payer OTHER, MEDICARE ==
--- NOTE | 2020-03-06 10:22 | SLEEP CARE CONSULTATION ---
Information from patient questionnaire entered by Lillie Arthur. I have reviewed and concur with the information entered by Lillie Arthur. This document represents the service I personally performed and the decisions made by me, All Herrera MD, [facility]. History of Present Illness Service Date and Time: 03/06/2020 0943 Previous diagnosis: Severe, Obstructive Sleep Apnea-Hypopnea Syndrome AHI: 46.5 (in 2015)(14.3 in 2006) Reason for follow up: other (11 month) Equipment type: BiPAP Equipment obtained from: [employer] Mask style: Full face Prior sleep studies: Yes Year and Where: 2005 and 2014 - [facility] Type of Sleep Study: Polysomnography HPI additional information: HPI: Mr. Ellsworth was diagnosed to have severe obstructive sleep apnea-hypopnea syndrome and returns today for annual follow up of BiPAP therapy. The patient purchased the device from [employer] but is getting supplies from [employer].. He wears a full face mask. He continues to use the device almost nightly. The compliance report shows that he uses the device 69 nights out of the past 90 nights, averaging 5.3 hours a night. The > 4 hour compliance rate for the past 90 days is 58%. He complains of air getting into his eyes from prior sinus surgery.. He thinks that the pressure of 20/14 cmH2O is comfortable. On the BiPAP therapy he notices improvement in his sleep quality, and that he wakes up feeling fresher in the morning and more awake/alert during the day. [place] Sleepiness Scale score is 10. His notices no snore at all. The average residual AHI is 8.1; and average time in large leak per day is 53 seconds. CPAP Compliance Data - Data Reviewed with Patient Average duration of nightly device use: 5 hr 33 min Compliance rate %: 56.7 (180 days) Current pressure setting (cmH2O): 20/14 Humidity settin Average residual AHI: 9.9 Average large leak: 28 sec Subjective Missed days of use due to: reports: other (sinus blockage) Patient concerns: reports: air blowing in eyes, mask leak noise, nasal congestion, dry mouth, nose, throat, epistaxis, other (snore while using device, and extremely crappy headgear) Current pressure setting perceived as: comfortable Initial [place] Sleepiness Scale score: 13 (in 2005) Current [place] Sleepiness Scale score: 10 Allergies and Home Medications Drug allergies reviewed: Yes Home medication list reviewed: Yes Review of Systems Review of systems same as previous: Yes Physical Exam Vital signs obtained and entered by: To minimize the risk of COVID-19 exposure, detailed exam was not performed. Height: 5 ft 11 in Weight: 255 lb Body Mass Index: 35.5 BMI Classification: Obese Impression and Plan IMPRESSION: 1. Obstructive Sleep Apnea-Hypopnea Syndrome, severe (AHI was 46.5) with the patient continuing to do well on nasal BiPAP therapy. He has [id number] compliance but significant clinical benefits. The current pressure appears slightly ineffective and comfortable. Overall, he is very satisfied with treatment and plans to continue with it long-term. Because the CPAP is now older than the useful life of 5 years, he is eligible for a new one. However, he will have to first show good compliance on his old machine before Medicare will purchase him the new one. PLAN: 1. Continue with BiPAP set at 20/14 cmH2O with oxygen supplement at 5 L/minute. 2. Try to lose weight 3. Return in one month for a follow up to recheck compliance, and, if compliant, I will order him a new BiPAP. Visit Type: In Office Time Spent with Patient (minutes): 15 Provider Statement: I spent 100% of the Face to Face Visit with the patient with greater than 50% spent counseling the patient and coordination of care.
== END 2020-03-06 09:44 | disposition home or self-care (01) ==
LOC: SC 09:43
PROVIDERS: ATTEND Internal Medicine Pulmonary Disease
DX: G47.33 Obstructive sleep apnea (adult) (pediatric) (principal); E66.9 Obesity, unspecified; Z68.35 Body mass index [BMI] 35.0-35.9, adult
CPT/HCPCS: 99212; 99213

== ENCOUNTER → 2020-04-04 | Outpatient (CLI) | payer OTHER, MEDICARE ==
--- NOTE | 2020-04-04 09:27 | XRAY Report ---
PROCEDURE: Hip 1 View RT INDICATIONS: RIGHT HIP PAIN TECHNIQUE: 2 views of the hip were acquired. COMPARISON: None FINDINGS: Bones: Symmetric appearing mild bilateral hip joint osteoarthritic changes are seen. No evidence of avascular necrosis of femoral head. No fractures or dislocations. No suspicious bony lesions. The v isualized pelvic ring appears intact. Soft tissues: No suspicious soft tissue calcifications or masses. IMPRESSION: Mild bilateral hip joint osteoarthritis. No right hip fracture or dislocation. No evidence of avascul ar necrosis. Reviewed by: Brandon Small MD on 04/04/2020 9:25 AM PST Approved by: Brandon Small MD on 04/04/2020 9:25 AM PST Station ID: [id number]
== END ==
LOC: DI.WCP 08:47
PROVIDERS: ATTEND Physician Assistant
DX: M16.0 Bilateral primary osteoarthritis of hip (principal)

== ENCOUNTER 2020-04-09 09:27 | Outpatient (CLI) | payer OTHER, MEDICARE ==
--- NOTE | 2020-04-09 10:09 | SLEEP CARE CONSULTATION ---
Information from patient questionnaire entered by Lillie Arthur. I have reviewed and concur with the information entered by Lillie Arthur. This document represents the service I personally performed and the decisions made by me, All Herrera MD, [facility]. History of Present Illness Service Date and Time: 04/09/2020926 Previous diagnosis: Severe, Obstructive Sleep Apnea-Hypopnea Syndrome AHI: 46.5 (in 2015)(14.3 in 2005) Reason for follow up: one month Equipment type: BiPAP Equipment obtained from: [employer] Mask style: Full face Prior sleep studies: Yes Year and Where: 2005 and 2014 - [facility] Type of Sleep Study: Polysomnography HPI additional information: HPI: Mr. Ellsworth was diagnosed to have severe obstructive sleep apnea-hypopnea syndrome and returns today for annual follow up of BiPAP therapy. The patient was prescribed a new BiPAP on his last visit a month ago but is still using his old one. His current machine is actually broken because when he puts the mask on, he still has to press the ON/OFF button to turn it on. The autoON feature is turned on. He bleeds in oxygen at 5 L/minute. He wears a full face mask. He uses the device almost nightly. The compliance report shows that he uses the device 26 nights out of the past 30 nights, averaging 5.8 hours a night. The > 4 hour compliance rate for the past 30 days is 67%. He complains of air getting into his eyes from prior sinus surgery. He thinks that the pressure of 20/14 cmH2O is comfortable. On the BiPAP therapy he notices improvement in his sleep quality, and that he wakes up feeling fresher in the morning and more awake/alert during the day. [place] Sleepiness Scale score is 11. His notices no snore at all. The average residual AHI is 11 (was 8.1) with most events being central apneas; and average time in large leak per day is 0 seconds. CPAP Compliance Data - Data Reviewed with Patient Average duration of nightly device use: 5 hr 46 min Compliance rate %: 66.7 Current pressure setting (cmH2O): 20/14 Humidity settin Average residual AHI: 11 Average large leak: 0 Subjective Missed days of use due to: reports: illness Patient concerns: reports: nasal congestion, dry mouth, nose, throat Initial [place] Sleepiness Scale score: 13 (in 2006) Current [place] Sleepiness Scale score: 11 Allergies and Home Medications Drug allergies reviewed: Yes Home medication list reviewed: Yes Review of Systems Review of systems same as previous: Yes Physical Exam Vital signs obtained and entered by: To minimize the risk of COVID-19 exposure, detailed exam was not performed. Height: 5 ft 11 in Weight: 260 lb Weight change since last visit: +5 Body Mass Index: 36.2 BMI Classification: Obese Impression and Plan IMPRESSION: 1. Obstructive Sleep Apnea-Hypopnea Syndrome, severe (AHI was 46.5) with the patient continuing to do well on nasal BiPAP therapy. He BiPAP is broken. I will order him a new one and set it slightly lower because the residual central apneas. For his nasal congestion, I advised him to set the heated humidifier at 5. PLAN: 1. Prescription made for a new BiPAP, heated humidifier, and related supplies. 2. Continue with home oxygen therapy at 5 L/minute. 3. Set the heated humidifier at 5 (maximum) 4. Return for follow up after one month on the new machine. Visit Type: In Office Time Spent with Patient (minutes): 15 Provider Statement: I spent 100% of the Face to Face Visit with the patient with greater than 50% spent counseling the patient and coordination of care.
== END 2020-04-09 09:28 | disposition home or self-care (01) ==
LOC: SC 09:27
PROVIDERS: ATTEND Internal Medicine Pulmonary Disease
DX: G47.33 Obstructive sleep apnea (adult) (pediatric) (principal); E66.9 Obesity, unspecified; Z68.36 Body mass index [BMI] 36.0-36.9, adult
CPT/HCPCS: 99212

== ENCOUNTER 2020-06-22 08:00 | Outpatient (CLI) | payer OTHER, MEDICARE ==
[2020-06-22 12:13] LABS: BASOPHILS % (AUTO) 0.5 %; EOSINOPHILS # (AUTO) 0.1 10^3/uL (0.0-0.7); EOSINOPHILS % (AUTO) 1.9 %; HCT - HEMATOCRIT 39.7 % (42.0-52.0); HGB - HEMOGLOBIN 12.9 g/dL (14.0-18.0); LYMPHOCYTES # (AUTO) 1.3 10^3/uL (1.5-3.5); LYMPHOCYTES % (AUTO) 29.9 %; MEAN CORPUSCULAR HGB CONC 32.5 g/dL (32.0-36.0); MEAN CORPUSCULAR VOLUME 95.4 fL (80.0-94.0); MEAN PLATELET VOLUME 11.7 fL (7.4-11.4); MONOCYTES # (AUTO) 0.5 10^3/uL (0.0-1.0); MONOCYTES % (AUTO) 11.4 %; NEUTROPHILS # (AUTO) 2.4 10^3/uL (1.5-6.6); NEUTROPHILS % (AUTO) 56.1 %; PLT - PLATELET COUNT 154 10^3/uL (130-450); RED BLOOD COUNT 4.16 10^6/uL (4.70-6.10); RED CELL DISTRIBUTION WIDTH 12.2 % (12.0-15.0); WHITE BLOOD COUNT 4.2 x10^3/uL (4.8-10.8)
[2020-06-22 12:18] LABS: ESTIMATED AVERAGE GLUCOSE 143 mg/dL (70-100); HEMOGLOBIN A1c% 6.6 % (4.27-6.07)
[2020-06-22 12:37] LABS: ALBUMIN 4.5 g/dL (3.2-5.5); ALBUMIN/GLOBULIN RATIO 1.6 (1.0-2.2); ALKALINE PHOSPHATASE 83 IU/L (42-121); ALT ALANINE AMINOTRANSFERASE 32 IU/L (10-60); AST ASPARTATE AMINOTRANSFERASE 30 IU/L (10-42); BILIRUBIN,TOTAL 0.4 mg/dL (0.2-1.0); BUN - BLOOD UREA NITROGEN 19 mg/dL (6-20); CALCIUM 9.4 mg/dL (8.5-10.3); CARBON DIOXIDE - CO2 29 mmol/L (21-32); CHLORIDE 99 mmol/L (101-111); CHOL/HDL RATIO 3.3 (<5.0); CHOLESTEROL 122 mg/dL; CREATININE 1.2 mg/dL (0.6-1.2); GFR - MDRD 60 (>89); GLUCOSE 147 mg/dL (70-100); HDL CHOLESTEROL 37 mg/dL; LDL CHOLESTEROL,CALCULATED 53 mg/dL; LDL/HDL RATIO 1.4 (<3.6); POTASSIUM 4.3 mmol/L (3.5-5.0); SODIUM 139 mmol/L (135-145); TOTAL PROTEIN 7.3 g/dL (6.7-8.2); TRIGLYCERIDES 162 mg/dL; VLDL CHOLESTEROL 32 mg/dL
[2020-06-22 12:45] LABS: THYROID STIMULATING HORMONE 2.69 uIU/mL (0.34-5.60)
== END 2020-06-22 23:59 | disposition home or self-care (01) ==
LOC: LAB.WCP 08:00
PROVIDERS: ATTEND Nurse Practitioner Family
DX: E11.9 Type 2 diabetes mellitus without complications (principal); D64.9 Anemia, unspecified; E78.5 Hyperlipidemia, unspecified; K76.0 Fatty (change of) liver, not elsewhere classified
CPT/HCPCS: 36415; 80053; 80061; 83036; 83721; 84443; 85025

== ENCOUNTER 2020-11-02 08:00 | Outpatient (CLI) | payer OTHER, MEDICARE ==
[2020-11-02 12:13] LABS: BASOPHILS % (AUTO) 0.6 %; EOSINOPHILS # (AUTO) 0.1 10^3/uL (0.0-0.7); EOSINOPHILS % (AUTO) 1.8 %; HCT - HEMATOCRIT 37.6 % (42.0-52.0); HGB - HEMOGLOBIN 12.7 g/dL (14.0-18.0); LYMPHOCYTES % (AUTO) 20.7 %; MEAN CORPUSCULAR HEMOGLOBIN 32.2 pg (27.0-31.0); MEAN CORPUSCULAR HGB CONC 33.8 g/dL (32.0-36.0); MEAN CORPUSCULAR VOLUME 95.4 fL (80.0-94.0); MEAN PLATELET VOLUME 12.3 fL (7.4-11.4); MONOCYTES # (AUTO) 0.6 10^3/uL (0.0-1.0); MONOCYTES % (AUTO) 12.3 %; NEUTROPHILS # (AUTO) 3.1 10^3/uL (1.5-6.6); NEUTROPHILS % (AUTO) 64.4 %; PLT - PLATELET COUNT 150 10^3/uL (130-450); RED BLOOD COUNT 3.94 10^6/uL (4.70-6.10); RED CELL DISTRIBUTION WIDTH 12.1 % (12.0-15.0); WHITE BLOOD COUNT 4.9 x10^3/uL (4.8-10.8)
[2020-11-02 12:27] LABS: ESTIMATED AVERAGE GLUCOSE 134 mg/dL (70-100); HEMOGLOBIN A1c% 6.3 % (4.27-6.07)
[2020-11-02 12:41] LABS: ALBUMIN 4.3 g/dL (3.2-5.5); ALBUMIN/GLOBULIN RATIO 1.3 (1.0-2.2); ALKALINE PHOSPHATASE 82 IU/L (42-121); ALT ALANINE AMINOTRANSFERASE 31 IU/L (10-60); AST ASPARTATE AMINOTRANSFERASE 27 IU/L (10-42); BILIRUBIN,TOTAL 0.5 mg/dL (0.2-1.0); BUN - BLOOD UREA NITROGEN 21 mg/dL (6-20); CALCIUM 9.6 mg/dL (8.5-10.3); CARBON DIOXIDE - CO2 29 mmol/L (21-32); CHLORIDE 103 mmol/L (101-111); CHOL/HDL RATIO 3.2 (<5.0); CHOLESTEROL 103 mg/dL; CREATININE 1.3 mg/dL (0.6-1.2); GFR - MDRD 55 (>89); GLUCOSE 71 mg/dL (70-100); HDL CHOLESTEROL 32 mg/dL; LDL CHOLESTEROL,CALCULATED 38 mg/dL; LDL/HDL RATIO 1.2 (<3.6); POTASSIUM 4.3 mmol/L (3.5-5.0); SODIUM 141 mmol/L (135-145); TOTAL PROTEIN 7.5 g/dL (6.7-8.2); TRIGLYCERIDES 167 mg/dL; VLDL CHOLESTEROL 33 mg/dL
== END 2020-11-02 23:59 | disposition home or self-care (01) ==
LOC: LAB.WCP 08:00
PROVIDERS: ATTEND Nurse Practitioner
DX: E11.9 Type 2 diabetes mellitus without complications (principal); G35 Multiple sclerosis
CPT/HCPCS: 36415; 80053; 80061; 82043; 82570; 83036; 83721; 85025

== ENCOUNTER 2021-04-11 08:00 | Outpatient (CLI) | payer OTHER, MEDICARE ==
[2021-04-11 18:39] LABS: BASOPHILS % (AUTO) 0.4 %; EOSINOPHILS # (AUTO) 0.1 10^3/uL (0.0-0.7); EOSINOPHILS % (AUTO) 0.7 %; HCT - HEMATOCRIT 39.9 % (42.0-52.0); HGB - HEMOGLOBIN 13.5 g/dL (14.0-18.0); LYMPHOCYTES % (AUTO) 13.8 %; MEAN CORPUSCULAR HEMOGLOBIN 31.6 pg (27.0-31.0); MEAN CORPUSCULAR HGB CONC 33.8 g/dL (32.0-36.0); MEAN CORPUSCULAR VOLUME 93.4 fL (80.0-94.0); MEAN PLATELET VOLUME 11.6 fL (7.4-11.4); MONOCYTES # (AUTO) 0.6 10^3/uL (0.0-1.0); MONOCYTES % (AUTO) 7.8 %; NEUTROPHILS # (AUTO) 5.8 10^3/uL (1.5-6.6); PLT - PLATELET COUNT 174 10^3/uL (130-450); RED BLOOD COUNT 4.27 10^6/uL (4.70-6.10); RED CELL DISTRIBUTION WIDTH 12.5 % (12.0-15.0); WHITE BLOOD COUNT 7.6 x10^3/uL (4.8-10.8)
[2021-04-11 18:49] LABS: ALBUMIN 4.5 g/dL (3.2-5.5); ALBUMIN/GLOBULIN RATIO 1.4 (1.0-2.2); BILIRUBIN,TOTAL 0.9 mg/dL (0.2-1.0); CALCIUM 9.5 mg/dL (8.5-10.3); POTASSIUM 4.9 mmol/L (3.5-5.0); TOTAL PROTEIN 7.7 g/dL (6.7-8.2)
[2021-04-11 21:01] LABS: ESTIMATED AVERAGE GLUCOSE 154 mg/dL (70-100)
== END 2021-04-11 23:59 ==
LOC: LAB.WCP 08:00
PROVIDERS: ATTEND Psychiatry & Neurology Neurology
DX: E11.9 Type 2 diabetes mellitus without complications (principal); G35 Multiple sclerosis; Z79.899 Other long term (current) drug therapy
CPT/HCPCS: 36415; 80053; 83036; 85025

== ENCOUNTER 2021-06-07 10:09 | Outpatient (CLI) | payer OTHER, MEDICARE | END 2021-06-07 10:10 | disposition home or self-care (01) | LOC: DI 10:09 | PROVIDERS: ATTEND Nurse Practitioner | DX: I51.89 Other ill-defined heart diseases (principal) | CPT/HCPCS: 93306 ==

== ENCOUNTER 2021-06-22 13:20 | Outpatient (CLI) | payer OTHER, MEDICARE ==
[2021-06-22 16:47] LABS: BASOPHILS % (AUTO) 0.4 %; EOSINOPHILS # (AUTO) 0.1 10^3/uL (0.0-0.7); EOSINOPHILS % (AUTO) 0.9 %; HCT - HEMATOCRIT 41.1 % (42.0-52.0); HGB - HEMOGLOBIN 14.3 g/dL (14.0-18.0); LYMPHOCYTES # (AUTO) 1.4 10^3/uL (1.5-3.5); LYMPHOCYTES % (AUTO) 17.7 %; MEAN CORPUSCULAR HEMOGLOBIN 31.7 pg (27.0-31.0); MEAN CORPUSCULAR HGB CONC 34.8 g/dL (32.0-36.0); MEAN CORPUSCULAR VOLUME 91.1 fL (80.0-94.0); MEAN PLATELET VOLUME 11.6 fL (7.4-11.4); MONOCYTES # (AUTO) 0.8 10^3/uL (0.0-1.0); MONOCYTES % (AUTO) 10.6 %; NEUTROPHILS # (AUTO) 5.3 10^3/uL (1.5-6.6); PLT - PLATELET COUNT 211 10^3/uL (130-450); RED BLOOD COUNT 4.51 10^6/uL (4.70-6.10); WHITE BLOOD COUNT 7.6 x10^3/uL (4.8-10.8)
[2021-06-22 16:59] LABS: ALBUMIN 4.8 g/dL (3.2-5.5); ALBUMIN/GLOBULIN RATIO 1.6 (1.0-2.2); BILIRUBIN,TOTAL 0.4 mg/dL (0.2-1.0); CALCIUM 9.5 mg/dL (8.5-10.3); CREATININE 1.2 mg/dL (0.6-1.2); POTASSIUM 4.6 mmol/L (3.5-5.0); TOTAL PROTEIN 7.8 g/dL (6.7-8.2)
== END 2021-06-22 13:21 | disposition home or self-care (01) ==
LOC: LAB.N 13:20
PROVIDERS: ATTEND Physical Medicine & Rehabilitation
DX: M79.2 Neuralgia and neuritis, unspecified (principal)
CPT/HCPCS: 36415; 80053; 85025

== ENCOUNTER 2021-08-02 14:58 | Outpatient (CLI) | payer OTHER, MEDICARE ==
[2021-08-02 19:05] LABS: BASOPHILS % (AUTO) 0.3 %; EOSINOPHILS # (AUTO) 0.1 10^3/uL (0.0-0.7); EOSINOPHILS % (AUTO) 2.2 %; HCT - HEMATOCRIT 40.3 % (42.0-52.0); HGB - HEMOGLOBIN 13.6 g/dL (14.0-18.0); LYMPHOCYTES # (AUTO) 1.2 10^3/uL (1.5-3.5); LYMPHOCYTES % (AUTO) 17.8 %; MEAN CORPUSCULAR HEMOGLOBIN 31.6 pg (27.0-31.0); MEAN CORPUSCULAR HGB CONC 33.7 g/dL (32.0-36.0); MEAN CORPUSCULAR VOLUME 93.7 fL (80.0-94.0); MEAN PLATELET VOLUME 12.1 fL (7.4-11.4); MONOCYTES # (AUTO) 0.6 10^3/uL (0.0-1.0); MONOCYTES % (AUTO) 8.6 %; NEUTROPHILS # (AUTO) 4.6 10^3/uL (1.5-6.6); NEUTROPHILS % (AUTO) 70.9 %; PLT - PLATELET COUNT 199 10^3/uL (130-450); RED CELL DISTRIBUTION WIDTH 12.4 % (12.0-15.0); WHITE BLOOD COUNT 6.5 x10^3/uL (4.8-10.8)
[2021-08-02 19:17] LABS: ALBUMIN 4.2 g/dL (3.2-5.5); ALBUMIN/GLOBULIN RATIO 1.3 (1.0-2.2); BILIRUBIN,TOTAL 0.2 mg/dL (0.2-1.0); CALCIUM 9.6 mg/dL (8.5-10.3); CREATININE 1.1 mg/dL (0.6-1.2); POTASSIUM 4.4 mmol/L (3.5-5.0); TOTAL PROTEIN 7.4 g/dL (6.7-8.2)
== END 2021-08-02 14:59 | disposition home or self-care (01) ==
LOC: LAB.N 14:58
PROVIDERS: ATTEND Physical Medicine & Rehabilitation
DX: M79.2 Neuralgia and neuritis, unspecified (principal); G35 Multiple sclerosis; J96.91 Respiratory failure, unspecified with hypoxia; Z99.81 Dependence on supplemental oxygen
CPT/HCPCS: 36415; 80053; 85025

== ENCOUNTER 2021-09-25 12:20 | Emergency (ER) | payer OTHER, MEDICARE ==
[2021-09-25 13:36] LABS: BASOPHILS % (AUTO) 0.5 %; EOSINOPHILS # (AUTO) 0.1 10^3/uL (0.0-0.7); EOSINOPHILS % (AUTO) 0.9 %; HCT - HEMATOCRIT 38.2 % (42.0-52.0); HGB - HEMOGLOBIN 12.9 g/dL (14.0-18.0); LYMPHOCYTES # (AUTO) 1.2 10^3/uL (1.5-3.5); LYMPHOCYTES % (AUTO) 13.8 %; MEAN CORPUSCULAR HEMOGLOBIN 31.9 pg (27.0-31.0); MEAN CORPUSCULAR HGB CONC 33.8 g/dL (32.0-36.0); MEAN CORPUSCULAR VOLUME 94.3 fL (80.0-94.0); MEAN PLATELET VOLUME 11.3 fL (7.4-11.4); MONOCYTES # (AUTO) 1.1 10^3/uL (0.0-1.0); MONOCYTES % (AUTO) 12.6 %; NEUTROPHILS # (AUTO) 6.3 10^3/uL (1.5-6.6); PLT - PLATELET COUNT 160 10^3/uL (130-450); RED BLOOD COUNT 4.05 10^6/uL (4.70-6.10); RED CELL DISTRIBUTION WIDTH 12.1 % (12.0-15.0); WHITE BLOOD COUNT 8.7 x10^3/uL (4.8-10.8)
--- NOTE | 2021-09-25 13:41 | ED Physician Documentation ---
PD HPI BACK PAIN - Stated complaint Stated Complaint: UPPER BACK PX - Chief complaint Chief Complaint: Back Pain - History obtained from History obtained from: Patient - History of Present Illness Timing - onset: How many days ago (2-3) Timing - duration: Days (2-3) Timing - details: Gradual onset (onset of some pain in upper back/trapezius area bilaterally that has worsened with spasms on movement. No noted injury. No prior similar.) Location: Upper (starting in lower cervical area at trapezius muscles and extending in triangular area down to medial scapular and out toward suprascapular shoulder area. No rash nor redness.), Right, Left Quality: Pain, Spasm, Aching Associated symptoms: No: Fever, Weakness (no new areas of weakness; has leg weakness previous due to MS.), Numbness Worsened by: Movement (movement of shoulders or lower neck causes spasms in upper back that radiates to upper arms bilaterally.) Contributing factors: Other (his currently with COVID URI and GI symptoms, but patient feels okay and has tested negative.). No: Lifting, Twisting, Trauma Similar symptoms before: Has not had sx before Recently seen: Clinic (was at [facility] yesterday and Rx methocarbamol adn given IM of Toradol. No other meds.) Review of Systems Constitutional: denies: Fever, Chills Nose: denies: Rhinorrhea / runny nose, Congestion Throat: denies: Sore throat Respiratory: denies: Cough Skin: denies: Rash, Lesions PD PAST MEDICAL HISTORY - Past Medical History Cardiovascular: None, Other Respiratory: Asthma, COPD, Shortness of breath, Sleep apnea Neuro: Multiple sclerosis Endocrine/Autoimmune: None GI: GERD, Other : Benign prostate hypertrophy, Retention, Frequency HEENT: Chronic sinusitis, Chronic hearing loss Psych: Depression, Anxiety, Panic attacks, Claustrophobia Musculoskeletal: Osteoarthritis, Fibromyalgia, Fatigue, Chronic back pain Derm: Other - Past Surgical History Past Surgical History: Yes General: Colonoscopy, EGD Ortho: Rotator cuff repair, Spine surgery Cardiovascular: Other HEENT: Tonsil/Adenoidectomy - Present Medications Home Medications: Ambulatory Orders Medication Instructions Recorded Confirmed Ketamine [Ketalar] 100 mg IJ ONCE 09/12/12 12/14/14 Terazosin [Hytrin] 10 mg PO QPM 09/12/12 12/14/14 Venlafaxine [Effexor] 225 mg PO DAILY 09/12/12 12/14/14 Baclofen [Lioresal] 10 mg PO TID 04/04/13 12/14/14 Lidocaine HCl/D5w/Pf [Lidocaine 4 mg IV ONCE 04/04/13 12/14/14 0.4% in D5w Soln] Oxycodone HCl/Acetaminophen 1 each PO Q6H PRN 04/04/13 12/14/14 [Percocet 5-325 mg Tablet] Rizatriptan Benzoate [Maxalt] 10 mg PO DAILY 04/04/13 12/14/14 Ubidecarenone [Coenzyme Q10] 100 gm MC DAILY 04/04/13 12/14/14 ALPRAZolam [Alprazolam] 0.5 mg PO ONCE PRN 10/25/14 12/14/14 Albuterol Sulfate [Ventolin Hfa] 2 puffs IH Q4H PRN 10/25/14 12/14/14 Azelastine HCl [Astelin] 137 mcg NS BID 10/25/14 12/14/14 Cetirizine HCl [Aller-Jean Claude] 10 mg PO BID 10/25/14 12/14/14 Hydromorphone HCl [Hydromorphone 16 mg PO DAILY 10/25/14 12/14/14 ER] Ketoconazole 1 applic TP BID 10/25/14 12/14/14 Pregabalin [Lyrica] 100 mg PO TID 10/25/14 12/14/14 Atorvastatin Calcium [Lipitor] 20 mg PO QPM 10/26/14 12/14/14 Calcium & Magnesium Carbonate 2 each PO DAILY 10/26/14 12/14/14 [Antacid Gelatin Caplet] Cholecalciferol (Vitamin D3) 5,000 unit PO DAILY 10/26/14 12/14/14 [Vitamin D3] Chondroitin Sulfate A [Chondroitin 1,500 mg PO DAILY 10/26/14 12/14/14 Sulfate] Evening Cando Oil [Evening 1,000 mg PO DAILY 10/26/14 12/14/14 Cando] Iron,Carb/Vit C/Vit B12/Folic 1 tab PO DAILY 10/26/14 12/14/14 [Iron 100 Plus Tablet] Phytosterol Combination No.1 1,000 mg PO DAILY 10/26/14 12/14/14 [Cholest Care] Safflower Oil/Linoleic Acid,Co 1,000 mg PO DAILY 10/26/14 12/14/14 [Cla 1,000 mg Softgel] Saw/Vit E/Sod Elizabeth/Lyc/Beta/Pyg 1 each PO DAILY 10/26/14 12/14/14 [Prostate Health Caplet] Diphenoxylate/Atropine [Lomotil] 1 each PO QID PRN #6 tablet 12/14/14 ondansetron HCL [Zofran] 4 mg PO Q6HR PRN #10 tablet 12/14/14 diazePAM [Valium] 5 mg PO TID PRN #15 tablet 09/25/21 oxyCODONE [Roxicodone] 5 mg PO Q6H PRN #15 tablet 09/25/21 - Allergies Allergies/Adverse Reactions: Allergies Allergy/AdvReac Type Severity Reaction Status Date / Time tape AdvReac Intermediate Rash Uncoded 10/25/14 09:48 - Social History Does the pt smoke?: Yes Smoking Status: Former smoker Does the pt drink ETOH?: Yes Does the pt have substance abuse?: No PD ED PE NORMAL - Vitals Vital signs reviewed: Yes - General General: Alert and oriented X 3, Well developed/nourished, Other (appears uncomfrtable and having grimacing with muscle spasms in upper back often, associated with movements. ) - HEENT HEENT: Atraumatic - Neck Neck: Supple, no meningeal sign, No bony TTP, No adenopathy - Cardiac Cardiac: RRR, No murmur - Respiratory Respiratory: Clear bilaterally - Abdomen Abdomen: Soft, Non tender - Back Back: No spinal TTP (but is focally tender in mid to lower trapezius muscles bilaterally with point triggering of pain and spasm to palpation. Some tender in rest of trapezius area bilat. ) - Derm Derm: Normal color, Warm and dry, No rash Results - Vitals Vitals: Vital Signs - 24 hr 09/25/21 09/25/21 12:29 17:09 Temperature 36.8 C Heart Rate 54 L 70 Respiratory 45 H 19 Rate Blood Pressure 135/97 H 116/72 O2 Saturation 96 97 Oxygen O2 Source Nasal cannula - Labs Labs: Laboratory Tests 09/25/21 09/25/21 09/25/21 13:25 13:25 13:25 WBC 8.7 RBC 4.05 L Hgb 12.9 L Hct 38.2 L MCV 94.3 H MCH 31.9 H MCHC 33.8 RDW 12.1 Plt Count 160 MPV 11.3 Neut # (Auto) 6.3 Lymph # (Auto) 1.2 L Amelia # (Auto) 1.1 H Eos # (Auto) 0.1 Baso # (Auto) 0.0 Absolute Nucleated RBC 0.00 Nucleated RBC % 0.0 Sodium 135 Potassium 4.8 Chloride 97 L Carbon Dioxide 29 Anion Gap 9.0 BUN 18 Creatinine 1.0 Estimated GFR (MDRD) 74 L Glucose 97 Calcium 9.2 Magnesium 2.2 Total Bilirubin 0.8 AST 19 ALT 20 Alkaline Phosphatase 89 Total Protein 7.8 Albumin 4.4 Globulin 3.4 Albumin/Globulin Ratio 1.3 Lipase 22 PD MEDICAL DECISION MAKING - ED course Complexity details: re-evaluated patient (feeling reasonably improved with combination of IV meds (central port accessed) along with local trigger point injections bilaterally trapezius muscle area with kenalog and lidocaine using 27 G needle. ), considered differential (seems muscular pains and spasms. Not dermatomal pattern. Pain with palpation and movement. Does not seem pulmonary or cardiac. ), d/w patient Departure - Departure Disposition: 01 Home, Self Care Clinical Impression: Acute upper back pain, Muscle spasms of neck Condition: Stable Record reviewed to determine appropriate education?: Yes Follow-Up: Nicole Kohli ARNP [Primary Care Provider] - Prescriptions: oxyCODONE [Roxicodone] 5 mg PO Q6H PRN #15 tablet PRN Reason: Pain diazePAM [Valium] 5 mg PO TID PRN #15 tablet PRN Reason: Spasms Comments: Continue usual medications. Add oxycodone every 4-6 hours if needed for pain. Also diazepam 3 times daily if needed for spasms. Heat to the area to help reduce spasms as well. Recheck if not improving well over the next couple of days and return if worse. I sent your prescription to [facility] market pharmacy I am prescribing a short course of narcotic pain medication for you. These are potentially dangerous and addictive medications that should be used carefully. These medications may constipate you. Take an kypi-zyf-sjopikp stool softener such as docusate twice daily with plenty of water while taking these medications. If you go 24 hours without a bowel movement, take [id number] MiraLAX, per package instructions. Do not drink or drive while taking these medications. If you received narcotic or sedating medications while in the emergency department do not drive for 24 hours. Store this medication in a safe, secure place and out of reach of children. It is a violation of federal law to give or sell this medication to another person or to use in a manner other than prescribed. The ED will not refill narcotic prescriptions, including prescriptions lost or stolen. You can dispose of unwanted medications at the [facility], [facility]'s office or at several pharmacies such as [facility]. Discharge Date/Time: 09/25/21 17:54
[2021-09-25 13:50] LABS: ALBUMIN 4.4 g/dL (3.2-5.5); ALBUMIN/GLOBULIN RATIO 1.3 (1.0-2.2); BILIRUBIN,TOTAL 0.8 mg/dL (0.2-1.0); CALCIUM 9.2 mg/dL (8.5-10.3); POTASSIUM 4.8 mmol/L (3.5-5.0); TOTAL PROTEIN 7.8 g/dL (6.7-8.2)
[2021-09-25] MEDS ORDERED: HYDROmorphone 1 MG/ML CARPUJECT IVP STA ×2 (14:08→16:31)
[2021-09-25] MEDS ORDERED: TRIAMCINOLONE 40 MG/ML VIAL IM STA (14:08)
[2021-09-25] MEDS ORDERED: diazePAM INJ 5 MG/ML SYRINGE IVP STA (14:08)
[2021-09-25] MEDS ORDERED: KETOROLAC 15 MG/ML VIAL IVP STA (14:08)
[2021-09-25] MEDS ORDERED: DEXAMETHASONE 10 MG/ML VIAL IVP STA (16:28)
[2021-09-25 17:10] VITALS: BP 116/72
== END 2021-09-25 17:54 | disposition home or self-care (01) ==
LOC: ED 12:20
DX: M54.6 Pain in thoracic spine (principal); G35 Multiple sclerosis; M62.838 Other muscle spasm; Z87.891 Personal history of nicotine dependence
CPT/HCPCS: 20552; 36415; 80053; 83690; 83735; 85025; 96372; 96374; 96375; 99285; J1170

== ENCOUNTER 2021-10-05 09:32 | Outpatient (CLI) | payer OTHER, MEDICARE ==
--- NOTE | 2021-10-05 18:52 | XRAY Report ---
PROCEDURE: Thoracic Spine 2 View INDICATIONS: BACK PAIN TECHNIQUE: 2 views of the thoracic spine were acquired. COMPARISON: None. FINDINGS: Bones: No fractures or dislocations. No suspicious bony lesions. Degenerative endplate changes and loss of disc height in mid to lower thoracic spine is seen. 12 pairs of ribs are noted, and appear in tact where visualized. Soft tissues: No paravertebral stripe thickening. IMPRESSION: Mild degenerative disc disease in mid to lower thoracic spine. No compression fracture or spondylolis thesis. Reviewed by: Brandon Small MD on 10/05/2021 6:51 PM PDT Approved by: Brandon Small MD on 10/05/2021 6:51 PM PDT Station ID: [id number]
--- NOTE | 2021-10-05 18:53 | XRAY Report ---
PROCEDURE: Cervical Spine 2 View INDICATIONS: DEGENERATIVE DISC DISEASE TECHNIQUE: 4 view(s) of the cervical spine were acquired. COMPARISON: None. FINDINGS: Bones: No fractures or dislocations to the C7-T1 level. There is near complete bony union at C3-4 l evel. Degenerative endplate changes are noted throughout cervical spine. Bilateral facet hypertrophic changes also. The lateral masses of C1 appear intact on the odontoid view. No suspicious bony lesio ns. Soft tissues: No prevertebral soft tissue swelling. IMPRESSION: Degenerative disc disease throughout cervical spine more prominent at C4-5 through C6-7 levels. There is complete bony union at C3-4 level. No acute fracture or dislocation. Reviewed by: Brandon Small MD on 10/05/2021 6:52 PM PDT Approved by: Brandon Small MD on 10/05/2021 6:52 PM PDT Station ID: [id number]
== END 2021-10-05 09:33 | disposition home or self-care (01) ==
LOC: DI 09:32
PROVIDERS: ATTEND Nurse Practitioner
DX: M43.22 Fusion of spine, cervical region (principal); M47.812 Spondylosis without myelopathy or radiculopathy, cervical region; M47.814 Spondylosis without myelopathy or radiculopathy, thoracic region

== ENCOUNTER 2021-12-04 07:11 | Outpatient (CLI) | payer OTHER, MEDICARE ==
[2021-12-04 11:49] LABS: BASOPHILS % (AUTO) 0.4 %; EOSINOPHILS # (AUTO) 0.2 10^3/uL (0.0-0.7); EOSINOPHILS % (AUTO) 2.2 %; HCT - HEMATOCRIT 37.7 % (42.0-52.0); HGB - HEMOGLOBIN 12.5 g/dL (14.0-18.0); LYMPHOCYTES # (AUTO) 1.2 10^3/uL (1.5-3.5); LYMPHOCYTES % (AUTO) 16.4 %; MEAN CORPUSCULAR HEMOGLOBIN 30.7 pg (27.0-31.0); MEAN CORPUSCULAR HGB CONC 33.2 g/dL (32.0-36.0); MEAN CORPUSCULAR VOLUME 92.6 fL (80.0-94.0); MEAN PLATELET VOLUME 12.4 fL (7.4-11.4); MONOCYTES # (AUTO) 0.6 10^3/uL (0.0-1.0); MONOCYTES % (AUTO) 8.7 %; NEUTROPHILS # (AUTO) 5.3 10^3/uL (1.5-6.6); NEUTROPHILS % (AUTO) 72.2 %; PLT - PLATELET COUNT 165 10^3/uL (130-450); RED BLOOD COUNT 4.07 10^6/uL (4.70-6.10); RED CELL DISTRIBUTION WIDTH 13.3 % (12.0-15.0); WHITE BLOOD COUNT 7.3 x10^3/uL (4.8-10.8)
[2021-12-04 12:06] LABS: ALBUMIN 4.3 g/dL (3.2-5.5); ALBUMIN/GLOBULIN RATIO 1.3 (1.0-2.2); ALKALINE PHOSPHATASE 79 IU/L (42-121); ALT ALANINE AMINOTRANSFERASE 35 IU/L (10-60); AST ASPARTATE AMINOTRANSFERASE 25 IU/L (10-42); BILIRUBIN,TOTAL 0.7 mg/dL (0.2-1.0); BUN - BLOOD UREA NITROGEN 22 mg/dL (6-20); CALCIUM 9.8 mg/dL (8.5-10.3); CARBON DIOXIDE - CO2 30 mmol/L (21-32); CHLORIDE 101 mmol/L (101-111); GFR - MDRD 74 (>89); GLUCOSE 134 mg/dL (70-100); SODIUM 139 mmol/L (135-145); TOTAL PROTEIN 7.5 g/dL (6.7-8.2); VANCOMYCIN,TROUGH 15.8 ug/mL (10.0-20.0)
== END 2021-12-04 07:12 | disposition home or self-care (01) ==
LOC: LAB.N 07:11
PROVIDERS: ATTEND Internal Medicine
DX: M46.22 Osteomyelitis of vertebra, cervical region (principal); R78.81 Bacteremia
CPT/HCPCS: 36415; 80053; 80202; 85025

== ENCOUNTER 2021-12-11 07:16 | Outpatient (CLI) | payer OTHER, MEDICARE ==
[2021-12-11 12:51] LABS: BASOPHILS % (AUTO) 0.6 %; EOSINOPHILS # (AUTO) 0.2 10^3/uL (0.0-0.7); EOSINOPHILS % (AUTO) 2.5 %; HCT - HEMATOCRIT 38.6 % (42.0-52.0); HGB - HEMOGLOBIN 12.9 g/dL (14.0-18.0); LYMPHOCYTES # (AUTO) 1.3 10^3/uL (1.5-3.5); LYMPHOCYTES % (AUTO) 20.7 %; MEAN CORPUSCULAR HEMOGLOBIN 31.2 pg (27.0-31.0); MEAN CORPUSCULAR HGB CONC 33.4 g/dL (32.0-36.0); MEAN CORPUSCULAR VOLUME 93.2 fL (80.0-94.0); MEAN PLATELET VOLUME 11.7 fL (7.4-11.4); MONOCYTES # (AUTO) 0.7 10^3/uL (0.0-1.0); MONOCYTES % (AUTO) 11.4 %; NEUTROPHILS # (AUTO) 4.1 10^3/uL (1.5-6.6); NEUTROPHILS % (AUTO) 64.6 %; PLT - PLATELET COUNT 161 10^3/uL (130-450); RED BLOOD COUNT 4.14 10^6/uL (4.70-6.10); RED CELL DISTRIBUTION WIDTH 13.2 % (12.0-15.0); WHITE BLOOD COUNT 6.4 x10^3/uL (4.8-10.8)
[2021-12-11 13:14] LABS: ALBUMIN 4.5 g/dL (3.2-5.5); ALBUMIN/GLOBULIN RATIO 1.5 (1.0-2.2); ALKALINE PHOSPHATASE 71 IU/L (42-121); ALT ALANINE AMINOTRANSFERASE 28 IU/L (10-60); AST ASPARTATE AMINOTRANSFERASE 23 IU/L (10-42); BILIRUBIN,TOTAL 0.6 mg/dL (0.2-1.0); BUN - BLOOD UREA NITROGEN 23 mg/dL (6-20); CALCIUM 9.8 mg/dL (8.5-10.3); CARBON DIOXIDE - CO2 30 mmol/L (21-32); CHLORIDE 100 mmol/L (101-111); CREATININE 1.1 mg/dL (0.6-1.2); GFR - MDRD 66 (>89); GLUCOSE 127 mg/dL (70-100); POTASSIUM 4.3 mmol/L (3.5-5.0); SODIUM 138 mmol/L (135-145); TOTAL PROTEIN 7.5 g/dL (6.7-8.2); VANCOMYCIN,TROUGH 18.1 ug/mL (10.0-20.0)
== END 2021-12-11 07:17 | disposition home or self-care (01) ==
LOC: LAB.N 07:16
PROVIDERS: ATTEND Internal Medicine
DX: M46.22 Osteomyelitis of vertebra, cervical region (principal); R78.81 Bacteremia
CPT/HCPCS: 36415; 80053; 80202; 85025

== ENCOUNTER 2021-12-18 07:07 | Outpatient (CLI) | payer OTHER, MEDICARE ==
[2021-12-18 12:02] LABS: BASOPHILS % (AUTO) 0.6 %; EOSINOPHILS # (AUTO) 0.1 10^3/uL (0.0-0.7); EOSINOPHILS % (AUTO) 2.2 %; HGB - HEMOGLOBIN 13.4 g/dL (14.0-18.0); LYMPHOCYTES # (AUTO) 1.5 10^3/uL (1.5-3.5); MEAN CORPUSCULAR HEMOGLOBIN 31.3 pg (27.0-31.0); MEAN CORPUSCULAR HGB CONC 33.5 g/dL (32.0-36.0); MEAN CORPUSCULAR VOLUME 93.5 fL (80.0-94.0); MONOCYTES # (AUTO) 0.6 10^3/uL (0.0-1.0); MONOCYTES % (AUTO) 9.5 %; NEUTROPHILS % (AUTO) 63.5 %; PLT - PLATELET COUNT 151 10^3/uL (130-450); RED BLOOD COUNT 4.28 10^6/uL (4.70-6.10); RED CELL DISTRIBUTION WIDTH 13.3 % (12.0-15.0); WHITE BLOOD COUNT 6.2 x10^3/uL (4.8-10.8)
[2021-12-18 12:19] LABS: ALBUMIN 4.4 g/dL (3.2-5.5); ALBUMIN/GLOBULIN RATIO 1.6 (1.0-2.2); ALKALINE PHOSPHATASE 82 IU/L (42-121); ALT ALANINE AMINOTRANSFERASE 25 IU/L (10-60); AST ASPARTATE AMINOTRANSFERASE 20 IU/L (10-42); BILIRUBIN,TOTAL 0.5 mg/dL (0.2-1.0); BUN - BLOOD UREA NITROGEN 18 mg/dL (6-20); CALCIUM 9.4 mg/dL (8.5-10.3); CARBON DIOXIDE - CO2 29 mmol/L (21-32); CHLORIDE 102 mmol/L (101-111); CREATININE 1.1 mg/dL (0.6-1.2); GFR - MDRD 66 (>89); GLUCOSE 139 mg/dL (70-100); POTASSIUM 4.3 mmol/L (3.5-5.0); SODIUM 138 mmol/L (135-145); TOTAL PROTEIN 7.1 g/dL (6.7-8.2); VANCOMYCIN,TROUGH 17.5 ug/mL (10.0-20.0)
== END 2021-12-18 07:08 | disposition home or self-care (01) ==
LOC: LAB.N 07:07
DX: M46.22 Osteomyelitis of vertebra, cervical region (principal); R78.81 Bacteremia
CPT/HCPCS: 36415; 80053; 80202; 85025

== ENCOUNTER 2021-12-25 07:07 | Outpatient (CLI) | payer OTHER, MEDICARE ==
[2021-12-25 12:31] LABS: BASOPHILS % (AUTO) 0.6 %; EOSINOPHILS # (AUTO) 0.1 10^3/uL (0.0-0.7); EOSINOPHILS % (AUTO) 2.1 %; HCT - HEMATOCRIT 40.8 % (42.0-52.0); HGB - HEMOGLOBIN 13.6 g/dL (14.0-18.0); LYMPHOCYTES # (AUTO) 1.6 10^3/uL (1.5-3.5); LYMPHOCYTES % (AUTO) 24.8 %; MEAN CORPUSCULAR HEMOGLOBIN 31.1 pg (27.0-31.0); MEAN CORPUSCULAR HGB CONC 33.3 g/dL (32.0-36.0); MEAN CORPUSCULAR VOLUME 93.4 fL (80.0-94.0); MEAN PLATELET VOLUME 12.5 fL (7.4-11.4); MONOCYTES # (AUTO) 0.7 10^3/uL (0.0-1.0); MONOCYTES % (AUTO) 10.4 %; NEUTROPHILS # (AUTO) 3.9 10^3/uL (1.5-6.6); NEUTROPHILS % (AUTO) 61.9 %; PLT - PLATELET COUNT 163 10^3/uL (130-450); RED BLOOD COUNT 4.37 10^6/uL (4.70-6.10); RED CELL DISTRIBUTION WIDTH 13.1 % (12.0-15.0); WHITE BLOOD COUNT 6.2 x10^3/uL (4.8-10.8)
[2021-12-25 12:56] LABS: ALBUMIN 4.6 g/dL (3.2-5.5); ALBUMIN/GLOBULIN RATIO 1.5 (1.0-2.2); ALKALINE PHOSPHATASE 73 IU/L (42-121); ALT ALANINE AMINOTRANSFERASE 26 IU/L (10-60); AST ASPARTATE AMINOTRANSFERASE 25 IU/L (10-42); BILIRUBIN,TOTAL 0.7 mg/dL (0.2-1.0); BUN - BLOOD UREA NITROGEN 18 mg/dL (6-20); CALCIUM 9.9 mg/dL (8.5-10.3); CARBON DIOXIDE - CO2 30 mmol/L (21-32); CHLORIDE 105 mmol/L (101-111); CREATININE 1.2 mg/dL (0.6-1.2); GFR - MDRD 60 (>89); GLUCOSE 134 mg/dL (70-100); POTASSIUM 4.6 mmol/L (3.5-5.0); SODIUM 142 mmol/L (135-145); TOTAL PROTEIN 7.7 g/dL (6.7-8.2); VANCOMYCIN,TROUGH 22.2 ug/mL (10.0-20.0)
== END 2021-12-25 07:08 | disposition home or self-care (01) ==
LOC: LAB.N 07:07
PROVIDERS: ATTEND Internal Medicine
DX: M46.22 Osteomyelitis of vertebra, cervical region (principal); R78.81 Bacteremia
CPT/HCPCS: 36415; 80053; 80202; 85025

== ENCOUNTER 2022-01-01 07:08 | Outpatient (CLI) | payer OTHER, MEDICARE ==
[2022-01-01 11:46] LABS: BASOPHILS % (AUTO) 0.3 %; EOSINOPHILS # (AUTO) 0.1 10^3/uL (0.0-0.7); HCT - HEMATOCRIT 40.4 % (42.0-52.0); HGB - HEMOGLOBIN 13.8 g/dL (14.0-18.0); LYMPHOCYTES # (AUTO) 1.5 10^3/uL (1.5-3.5); LYMPHOCYTES % (AUTO) 22.4 %; MEAN CORPUSCULAR HEMOGLOBIN 31.2 pg (27.0-31.0); MEAN CORPUSCULAR HGB CONC 34.2 g/dL (32.0-36.0); MEAN CORPUSCULAR VOLUME 91.4 fL (80.0-94.0); MEAN PLATELET VOLUME 12.4 fL (7.4-11.4); MONOCYTES # (AUTO) 0.6 10^3/uL (0.0-1.0); NEUTROPHILS # (AUTO) 4.4 10^3/uL (1.5-6.6); NEUTROPHILS % (AUTO) 66.1 %; PLT - PLATELET COUNT 161 10^3/uL (130-450); RED BLOOD COUNT 4.42 10^6/uL (4.70-6.10); RED CELL DISTRIBUTION WIDTH 12.5 % (12.0-15.0); WHITE BLOOD COUNT 6.7 x10^3/uL (4.8-10.8)
[2022-01-01 12:24] LABS: ALBUMIN 4.5 g/dL (3.2-5.5); ALBUMIN/GLOBULIN RATIO 1.6 (1.0-2.2); ALKALINE PHOSPHATASE 79 IU/L (42-121); ALT ALANINE AMINOTRANSFERASE 25 IU/L (10-60); AST ASPARTATE AMINOTRANSFERASE 23 IU/L (10-42); BILIRUBIN,TOTAL 0.6 mg/dL (0.2-1.0); BUN - BLOOD UREA NITROGEN 17 mg/dL (6-20); CALCIUM 9.8 mg/dL (8.5-10.3); CARBON DIOXIDE - CO2 30 mmol/L (21-32); CHLORIDE 100 mmol/L (101-111); CREATININE 1.2 mg/dL (0.6-1.2); GFR - MDRD 60 (>89); GLUCOSE 170 mg/dL (70-100); POTASSIUM 4.5 mmol/L (3.5-5.0); SODIUM 138 mmol/L (135-145); TOTAL PROTEIN 7.3 g/dL (6.7-8.2); VANCOMYCIN,TROUGH 15.3 ug/mL (10.0-20.0)
== END 2022-01-01 07:09 | disposition home or self-care (01) ==
LOC: LAB.N 07:08
PROVIDERS: ATTEND Internal Medicine
DX: M46.22 Osteomyelitis of vertebra, cervical region (principal); R78.81 Bacteremia
CPT/HCPCS: 36415; 80053; 80202; 85025

== ENCOUNTER 2022-08-04 09:30 | Outpatient (CLI) | payer OTHER, MEDICARE ==
[2022-08-04 12:17] LABS: BASOPHILS % (AUTO) 0.5 %; EOSINOPHILS # (AUTO) 0.1 10^3/uL (0.0-0.7); EOSINOPHILS % (AUTO) 1.4 %; HCT - HEMATOCRIT 44.1 % (42.0-52.0); HGB - HEMOGLOBIN 14.9 g/dL (14.0-18.0); LYMPHOCYTES # (AUTO) 1.3 10^3/uL (1.5-3.5); LYMPHOCYTES % (AUTO) 19.1 %; MEAN CORPUSCULAR HGB CONC 33.8 g/dL (32.0-36.0); MEAN CORPUSCULAR VOLUME 91.9 fL (80.0-94.0); MEAN PLATELET VOLUME 11.9 fL (7.4-11.4); MONOCYTES # (AUTO) 0.5 10^3/uL (0.0-1.0); MONOCYTES % (AUTO) 7.2 %; NEUTROPHILS # (AUTO) 4.8 10^3/uL (1.5-6.6); NEUTROPHILS % (AUTO) 71.5 %; PLT - PLATELET COUNT 177 10^3/uL (130-450); RED CELL DISTRIBUTION WIDTH 12.2 % (12.0-15.0); WHITE BLOOD COUNT 6.7 x10^3/uL (4.8-10.8)
[2022-08-04 12:19] LABS: ALBUMIN 4.6 g/dL (3.2-5.5); ALBUMIN/GLOBULIN RATIO 1.5 (1.0-2.2); BILIRUBIN,TOTAL 0.6 mg/dL (0.2-1.0); CALCIUM 9.2 mg/dL (8.5-10.3); CREATININE 1.1 mg/dL (0.6-1.2); POTASSIUM 4.6 mmol/L (3.5-5.0); TOTAL PROTEIN 7.6 g/dL (6.7-8.2)
[2022-08-04 12:38] LABS: THYROID STIMULATING HORMONE 0.8 uIU/mL (0.34-5.60)
== END 2022-08-04 09:31 | disposition home or self-care (01) ==
LOC: LAB.N 09:30
PROVIDERS: ATTEND Physical Medicine & Rehabilitation
DX: R09.02 Hypoxemia (principal); G35 Multiple sclerosis
CPT/HCPCS: 36415; 80053; 83519; 84443; 85025

== ENCOUNTER 2022-10-30 08:52 | Outpatient (CLI) | payer OTHER, MEDICARE ==
[2022-10-30 12:28] LABS: BASOPHILS % (AUTO) 0.6 %; EOSINOPHILS # (AUTO) 0.1 10^3/uL (0.0-0.7); EOSINOPHILS % (AUTO) 1.1 %; HCT - HEMATOCRIT 42.8 % (42.0-52.0); HGB - HEMOGLOBIN 14.2 g/dL (14.0-18.0); LYMPHOCYTES # (AUTO) 1.1 10^3/uL (1.5-3.5); LYMPHOCYTES % (AUTO) 15.3 %; MEAN CORPUSCULAR HEMOGLOBIN 30.7 pg (27.0-31.0); MEAN CORPUSCULAR HGB CONC 33.2 g/dL (32.0-36.0); MEAN CORPUSCULAR VOLUME 92.4 fL (80.0-94.0); MEAN PLATELET VOLUME 11.8 fL (7.4-11.4); MONOCYTES # (AUTO) 0.6 10^3/uL (0.0-1.0); MONOCYTES % (AUTO) 8.6 %; NEUTROPHILS # (AUTO) 5.2 10^3/uL (1.5-6.6); NEUTROPHILS % (AUTO) 74.1 %; PLT - PLATELET COUNT 167 10^3/uL (130-450); RED BLOOD COUNT 4.63 10^6/uL (4.70-6.10); RED CELL DISTRIBUTION WIDTH 12.2 % (12.0-15.0)
[2022-10-30 12:37] LABS: ESTIMATED AVERAGE GLUCOSE 140 mg/dL (70-100); HEMOGLOBIN A1c% 6.5 % (4.27-6.07)
[2022-10-30 12:42] LABS: ALBUMIN 4.5 g/dL (3.2-5.5); ALBUMIN/GLOBULIN RATIO 1.6 (1.0-2.2); ALKALINE PHOSPHATASE 96 IU/L (42-121); ALT ALANINE AMINOTRANSFERASE 17 IU/L (10-60); AST ASPARTATE AMINOTRANSFERASE 19 IU/L (10-42); BILIRUBIN,TOTAL 0.5 mg/dL (0.2-1.0); BUN - BLOOD UREA NITROGEN 17 mg/dL (6-20); CALCIUM 9.7 mg/dL (8.5-10.3); CARBON DIOXIDE - CO2 28 mmol/L (21-32); CHLORIDE 101 mmol/L (101-111); CHOL/HDL RATIO 3.2 (<5.0); CHOLESTEROL 99 mg/dL; CREATININE 1.4 mg/dL (0.6-1.3); GFR - MDRD 50 (>89); GLUCOSE 132 mg/dL (74-104); HDL CHOLESTEROL 31 mg/dL; LDL CHOLESTEROL,CALCULATED 42 mg/dL; LDL/HDL RATIO 1.4 (<3.6); POTASSIUM 4.6 mmol/L (3.5-4.5); SODIUM 135 mmol/L (135-145); TOTAL PROTEIN 7.3 g/dL (6.4-8.9); TRIGLYCERIDES 131 mg/dL (48-352); VLDL CHOLESTEROL 26 mg/dL
== END 2022-10-30 08:53 | disposition home or self-care (01) ==
LOC: LAB.N 08:52
PROVIDERS: ATTEND Internal Medicine Cardiovascular Disease
DX: E11.9 Type 2 diabetes mellitus without complications (principal); E78.5 Hyperlipidemia, unspecified; Z12.5 Encounter for screening for malignant neoplasm of prostate; R73.03 Prediabetes; R00.1 Bradycardia, unspecified; I10 Essential (primary) hypertension
CPT/HCPCS: 36415; 80053; 80061; 82043; 82570; 83036; 83721; 84153; 84439; 84443; 85025

== ENCOUNTER 2022-10-31 08:00 | Outpatient (CLI) | payer OTHER, MEDICARE ==
[2022-10-31 17:54] LABS: CREATININE,URINE 63.2 mg/dL; MICROALBUMIN,URINE < 0.7 mg/dL
== END 2022-10-31 23:59 | disposition home or self-care (01) ==
LOC: LAB.N 08:00
PROVIDERS: ATTEND Nurse Practitioner
DX: E11.9 Type 2 diabetes mellitus without complications (principal)
CPT/HCPCS: 82043; 82570

== ENCOUNTER 2023-02-05 08:03 | Outpatient (CLI) | payer OTHER, MEDICARE ==
[2023-02-05 12:49] LABS: ESTIMATED AVERAGE GLUCOSE 131 mg/dL (70-100); HEMOGLOBIN A1c% 6.2 % (4.27-6.07)
== END 2023-02-05 08:04 | disposition home or self-care (01) ==
LOC: LAB.N 08:03
PROVIDERS: ATTEND Nurse Practitioner
DX: E11.9 Type 2 diabetes mellitus without complications (principal)
CPT/HCPCS: 36415; 83036

== ENCOUNTER 2023-04-27 08:44 | Outpatient (CLI) | payer OTHER, MEDICARE ==
[2023-04-27 12:27] LABS: BASOPHILS % (AUTO) 0.5 %; EOSINOPHILS # (AUTO) 0.1 10^3/uL (0.0-0.7); EOSINOPHILS % (AUTO) 1.1 %; HCT - HEMATOCRIT 41.7 % (42.0-52.0); LYMPHOCYTES # (AUTO) 1.6 10^3/uL (1.5-3.5); LYMPHOCYTES % (AUTO) 19.1 %; MEAN CORPUSCULAR HEMOGLOBIN 30.8 pg (27.0-31.0); MEAN CORPUSCULAR HGB CONC 33.6 g/dL (32.0-36.0); MEAN CORPUSCULAR VOLUME 91.9 fL (80.0-94.0); MONOCYTES # (AUTO) 0.8 10^3/uL (0.0-1.0); MONOCYTES % (AUTO) 9.1 %; NEUTROPHILS # (AUTO) 5.9 10^3/uL (1.5-6.6); NEUTROPHILS % (AUTO) 70.1 %; PLT - PLATELET COUNT 175 10^3/uL (130-450); RED BLOOD COUNT 4.54 10^6/uL (4.70-6.10); WHITE BLOOD COUNT 8.4 x10^3/uL (4.8-10.8)
[2023-04-27 12:44] LABS: ALBUMIN 4.3 g/dL (3.2-5.5); ALBUMIN/GLOBULIN RATIO 1.4 (1.0-2.2); BILIRUBIN,TOTAL 0.4 mg/dL (0.2-1.0); CALCIUM 9.4 mg/dL (8.5-10.3); CREATININE 1.4 mg/dL (0.6-1.3); POTASSIUM 4.4 mmol/L (3.5-4.5); TOTAL PROTEIN 7.3 g/dL (6.4-8.9)
[2023-04-27 13:18] LABS: ESTIMATED AVERAGE GLUCOSE 128 mg/dL (70-100); HEMOGLOBIN A1c% 6.1 % (4.27-6.07)
== END 2023-04-27 08:45 | disposition home or self-care (01) ==
LOC: LAB.N 08:44
PROVIDERS: ATTEND Nurse Practitioner
DX: R10.11 Right upper quadrant pain (principal); E11.9 Type 2 diabetes mellitus without complications
CPT/HCPCS: 36415; 80053; 81001; 82043; 82150; 82570; 83036; 83690; 85025; 87086

== ENCOUNTER 2023-05-17 07:08 | Outpatient (CLI) | payer OTHER, MEDICARE ==
--- NOTE | 2023-05-17 12:46 | Ultrasound Report ---
1.PROCEDURE: Abdomen Complete INDICATIONS: RUQ ABD PAIN TECHNIQUE: Real-time scanning was performed of the abdominal and retroperitoneal organs, with image documentatio n. COMPARISON: CT abdomen and pelvis on September 18, 2019. FINDINGS: Evaluation is limited secondary to bowel gas artifact. Liver: Liver is normal in size and homogeneous in echotexture. Main portal vein is patent with hepat opedal flow. Gallbladder: Unremarkable. Biliary ducts: Intrahepatic bile ducts are non-dilated. Extrahepatic bile duct caliber measures 5 m m. Normal is 6-7 mm or less in diameter, or 10 mm or less post-cholecystectomy. Pancreas: Not well seen secondary to bowel gas. Spleen: Spleen is normal in size and homogeneous in echotexture. Kidneys: Kidneys are normal in size and echotexture. Right kidney measures 10.4 cm long; left kidne y measures 10.8 cm long. No hydronephrosis or nephrolithiasis. No solid masses. No complex renal cy stic lesions which require follow-up. Aorta: Visualized aorta is normal in caliber at less than 3 cm. Proximal aorta measures 2.7 cm. Iliacs: Proximal common iliac arteries are normal in caliber at less than 2.5 cm. IVC: Intrahepatic inferior vena cava is patent. Miscellaneous: No free abdominal fluid. IMPRESSION: Evaluation is limited secondary to bowel gas artifact. 1.No sonographic findings to explain right upper quadrant pain. 2.No abdominal aortic aneurysm. Proximal aorta is ectatic measuring 2.7 cm. Recommend repeat ultrasou nd in 5 years. Reviewed by: Esther Mckenna MD on 05/17/2023 12:45 PM PST Approved by: Esther Mckenna MD on 05/17/2023 12:45 PM PST Station ID: [id number]
== END 2023-05-17 07:09 | disposition home or self-care (01) ==
LOC: DI 07:08
PROVIDERS: ATTEND Nurse Practitioner
DX: R10.11 Right upper quadrant pain (principal); I77.811 Abdominal aortic ectasia

== ENCOUNTER 2023-08-07 14:05 | Outpatient (CLI) | payer OTHER, MEDICARE ==
--- NOTE | 2023-08-07 14:57 | XRAY Report ---
PROCEDURE: Hips w/Pelvis 2-3V BL INDICATIONS: BILATERAL HIP JOINT PAIN TECHNIQUE: 2 view(s) of the hips were acquired. COMPARISON: None. FINDINGS: Bones: No fractures or dislocations. No suspicious bony lesions. The visualized pelvic ring appear s intact. Nonuniform joint space narrowing with osteophytic lipping of the acetabuli. Soft tissues: No suspicious soft tissue calcifications or masses. IMPRESSION: Mild bilateral hip osteoarthritis without bony deformity. Reviewed by: Alfredo Sanchez MD on 08/07/2023 2:55 PM PDT Approved by: Alfredo Sanchez MD on 08/07/2023 2:55 PM PDT Station ID: [id number]
== END 2023-08-07 14:06 | disposition home or self-care (01) ==
LOC: DI.N 14:05
PROVIDERS: ATTEND Orthopaedic Surgery
DX: M16.0 Bilateral primary osteoarthritis of hip (principal)

== ENCOUNTER 2023-09-25 18:51 | Outpatient (CLI) | payer OTHER, MEDICARE | END 2023-09-25 23:59 | disposition critical access hospital (66) | LOC: EMS 18:51 | DX: R53.1 Weakness (principal); R63.0 Anorexia; R52 Pain, unspecified; R05.9 Cough, unspecified; R06.02 Shortness of breath; R19.7 Diarrhea, unspecified; R68.83 Chills (without fever); R25.2 Cramp and spasm | CPT/HCPCS: A0425; A0427 ==

== ENCOUNTER 2023-09-25 19:10 | Inpatient (IN) | payer OTHER, MEDICARE ==
--- NOTE | 2023-09-25 19:45 | ED Physician Documentation ---
History of Present Illness - Stated complaint Stated Complaint: WEAKNESS, COUGH - Chief complaint Chief Complaint: General - Additonal information Additional information: 73-year-old male with history of MS, asthma, COPD, BPH, urinary retention, fibromyalgia, depression, anxiety presents emergency department via EMS for increased generalized weakness, shortness of breath and cough. Patient says about once every 3 months he has episodes of weakness which is what he originally chalked this up to be but it has gotten significantly worse over the last couple days and today is to the point where he feels like he is having hard time ambulating because of how bad he is feeling. He is normally on about 2 L of oxygen with ambulation at home. PD PAST MEDICAL HISTORY - Past Medical History Cardiovascular: None, Other Respiratory: Asthma, COPD, Shortness of breath, Sleep apnea Neuro: Multiple sclerosis Endocrine/Autoimmune: None GI: GERD, Other : Benign prostate hypertrophy, Retention, Frequency HEENT: Chronic sinusitis, Chronic hearing loss Psych: Depression, Anxiety, Panic attacks, Claustrophobia Musculoskeletal: Osteoarthritis, Fibromyalgia, Fatigue, Chronic back pain Derm: Other - Past Surgical History Past Surgical History: Yes General: Colonoscopy, EGD Ortho: Rotator cuff repair, Spine surgery Cardiovascular: Other HEENT: Tonsil/Adenoidectomy - Present Medications Home Medications: Ambulatory Orders Medication Instructions Recorded Confirmed Ketamine (50Mg/ml) [Ketalar] 100 mg IJ ONCE 09/12/12 11/28/21 Terazosin [Hytrin] 10 mg PO QPM 09/12/12 11/28/21 Venlafaxine [Effexor] 225 mg PO DAILY 09/12/12 11/28/21 Baclofen [Lioresal] 10 mg PO TID 04/04/13 11/28/21 Lidocaine HCl/D5w/Pf [Lidocaine 4 mg IV ONCE 04/04/13 11/28/21 0.4% in D5w Soln] Rizatriptan Benzoate [Maxalt] 10 mg PO DAILY 04/04/13 11/28/21 Ubidecarenone [Coenzyme Q10] 100 gm MC DAILY 04/04/13 11/28/21 ALPRAZolam [Alprazolam] 0.5 mg PO ONCE PRN 10/25/14 11/28/21 Albuterol Sulfate [Ventolin Hfa] 2 puffs IH Q4H PRN 10/25/14 11/28/21 Azelastine HCl [Astelin] 137 mcg NS BID 10/25/14 11/28/21 Cetirizine HCl [Aller-Jean Claude] 10 mg PO BID 10/25/14 11/28/21 Pregabalin [Lyrica] 100 mg PO TID 10/25/14 11/28/21 Atorvastatin Calcium [Lipitor] 20 mg PO QPM 10/26/14 11/28/21 Calcium & Magnesium Carbonate 2 each PO DAILY 10/26/14 11/28/21 [Antacid Gelatin Caplet] Cholecalciferol (Vitamin D3) 5,000 unit PO DAILY 10/26/14 11/28/21 [Vitamin D3] Chondroitin Sulfate A [Chondroitin 1,500 mg PO DAILY 10/26/14 11/28/21 Sulfate] Iron,Carb/Vit C/Vit B12/Folic 1 tab PO DAILY 10/26/14 11/28/21 [Iron 100 Plus Tablet] Phytosterol Combination No.1 1,000 mg PO DAILY 10/26/14 11/28/21 [Cholest Care] ondansetron HCL [Zofran] 4 mg PO Q6HR PRN #10 tablet 12/14/14 11/28/21 oxyCODONE [Roxicodone] 5 mg PO Q6H PRN #15 tablet 09/25/21 11/28/21 - Allergies Allergies/Adverse Reactions: Allergies Allergy/AdvReac Type Severity Reaction Status Date / Time tape AdvReac Intermediate Rash Uncoded 09/25/23 19:28 - Social History Does the pt smoke?: Yes Smoking Status: Current every day smoker Does the pt drink ETOH?: Yes Does the pt have substance abuse?: No PD ED PE NORMAL - Vitals Vital signs reviewed: Yes - General General: Alert and oriented X 3, Well developed/nourished, Other (Ill-appearing) - HEENT HEENT: Atraumatic, PERRL - Neck Neck: Supple, no meningeal sign - Cardiac Cardiac: RRR - Respiratory Respiratory: No respiratory distress, Clear bilaterally, Other (Tachypneic) - Abdomen Abdomen: Normal bowel sounds, Soft, Non tender, No organomegaly - Back Back: No CVA TTP - Derm Derm: Normal color - Extremities Extremities: No deformity, No edema, No calf tenderness / cord - Neuro Neuro: Alert and oriented X 3, public health program manager 2-12 intact, No motor deficit, No sensory deficit, Normal speech Eye Opening: Spontaneous Motor: Obeys Commands Verbal: Oriented GCS Score: 15 Results - Vitals Vitals: Vital Signs - 24 hr 09/25/23 09/25/23 19:10 21:30 Temperature 36.7 C Heart Rate 89 79 Respiratory 14 17 Rate Blood Pressure 147/56 H 156/95 H O2 Saturation 97 98 Oxygen O2 Source Room air - EKG (time done) 1949 EKG releavant findings:: EKG personally interpreted by author of this note. Relevant findings are: Rate: Rate (enter#) (87) Rhythm: NSR [place]: Normal Ischemia: Other (Probable old inferior infarct.) Computer interpretation: Agree with computer - Labs Labs: Laboratory Tests 09/25/23 09/25/23 09/25/23 19:26 19:58 19:58 WBC 9.7 RBC 4.78 Hgb 14.8 Hct 42.0 MCV 87.9 MCH 31.0 MCHC 35.2 RDW 12.0 Plt Count 222 MPV 11.1 Neut # (Auto) 8.0 H Lymph # (Auto) 1.1 L Dawes # (Auto) 0.6 Eos # (Auto) 0.0 Baso # (Auto) 0.0 Absolute Nucleated RBC 0.00 Nucleated RBC % 0.0 Sodium 132 L Potassium 3.8 Chloride 104 Carbon Dioxide 22 Anion Gap 6.0 BUN 18 Creatinine 1.0 Estimated GFR (MDRD) 74 L Glucose 198 H Calcium 9.7 Magnesium 1.7 Total Bilirubin 0.5 AST 18 ALT 20 Alkaline Phosphatase 91 Troponin I High Sens Total Protein 6.7 Albumin 4.2 Globulin 2.5 Albumin/Globulin Ratio 1.7 Lipase < 10 L Nasal Adenovirus (PCR) NOT DETECTED Nasal B. parapertussis DNA (PCR) NOT DETECTED Nasal Coronavir 229E PCR NOT DETECTED Nasal Coronavir HKU1 PCR NOT DETECTED Nasal Coronavir NL63 PCR NOT DETECTED Nasal Coronavir OC43 PCR NOT DETECTED Nasal Enterovir/Rhinovir PCR NOT DETECTED Nasal Influenza B PCR NOT DETECTED Nasal Influenza A PCR NOT DETECTED Nasal Parainfluen 1 PCR NOT DETECTED Nasal Parainfluen 2 PCR NOT DETECTED Nasal Parainfluen 3 PCR NOT DETECTED Nasal Parainfluen 4 PCR NOT DETECTED Nasal RSV (PCR) NOT DETECTED Nasal B.pertussis DNA PCR NOT DETECTED Nasal C.pneumoniae (PCR) NOT DETECTED Augustus Human Metapneumo PCR NOT DETECTED Nasal M.pneumoniae (PCR) NOT DETECTED Nasal SARS-CoV-2 (PCR) NOT DETECTED 09/25/23 19:58 WBC RBC Hgb Hct MCV MCH MCHC RDW Plt Count MPV Neut # (Auto) Lymph # (Auto) Dawes # (Auto) Eos # (Auto) Baso # (Auto) Absolute Nucleated RBC Nucleated RBC % Sodium Potassium Chloride Carbon Dioxide Anion Gap BUN Creatinine Estimated GFR (MDRD) Glucose Calcium Magnesium Total Bilirubin AST ALT Alkaline Phosphatase Troponin I High Sens 4.9 Total Protein Albumin Globulin Albumin/Globulin Ratio Lipase Nasal Adenovirus (PCR) Nasal B. parapertussis DNA (PCR) Nasal Coronavir 229E PCR Nasal Coronavir HKU1 PCR Nasal Coronavir NL63 PCR Nasal Coronavir OC43 PCR Nasal Enterovir/Rhinovir PCR Nasal Influenza B PCR Nasal Influenza A PCR Nasal Parainfluen 1 PCR Nasal Parainfluen 2 PCR Nasal Parainfluen 3 PCR Nasal Parainfluen 4 PCR Nasal RSV (PCR) Nasal B.pertussis DNA PCR Nasal C.pneumoniae (PCR) Augustus Human Metapneumo PCR Nasal M.pneumoniae (PCR) Nasal SARS-CoV-2 (PCR) - Rads (name of study) Chest x-ray Relevant Findings:: Final report received, EMP independent interpretation of test, Other (Mild perihilar airway thickening and mild patchy bibasilar opacities may represent infectious or inflammatory process) PD Medical Decision Making - ED course ED course: 73-year-old male presents emergency department for shortness of breath generalized malaise feeling. Labs are complete for further evaluation no anemia no leukocytosis mild hyponatremia 132 he was given a liter of IV fluids here in the emergency department. Respiratory swab was negative. Chest x-ray was completed for further evaluation and He does appear to have pneumonia shows mild perihilar airway thickening and mild patchy bibasilar opacity most likely infectious. Curb 65 score is 2 given making him moderate risk. 2 sets of blood cultures are complete. Patient was started on Rocephin and doxycycline IV I spoke with Dr. León and she has graciously agreed to admit the patient for further hospitalization for his pneumonia. Patient is agreeable to stay. Departure - Departure Disposition: 66 [facility] DC/Xfer Clinical Impression: Community acquired pneumonia Forms: PCP List
[2023-09-25 20:02] LABS: BASOPHILS % (AUTO) 0.3 %; EOSINOPHILS % (AUTO) 0.1 %; HGB - HEMOGLOBIN 14.8 g/dL (14.0-18.0); LYMPHOCYTES # (AUTO) 1.1 10^3/uL (1.5-3.5); LYMPHOCYTES % (AUTO) 11.2 %; MEAN CORPUSCULAR HGB CONC 35.2 g/dL (32.0-36.0); MEAN CORPUSCULAR VOLUME 87.9 fL (80.0-94.0); MEAN PLATELET VOLUME 11.1 fL (7.4-11.4); MONOCYTES # (AUTO) 0.6 10^3/uL (0.0-1.0); MONOCYTES % (AUTO) 6.3 %; PLT - PLATELET COUNT 222 10^3/uL (130-450); RED BLOOD COUNT 4.78 10^6/uL (4.70-6.10); WHITE BLOOD COUNT 9.7 x10^3/uL (4.8-10.8)
[2023-09-25 20:20] LABS: ALBUMIN 4.2 g/dL (3.2-5.5); ALBUMIN/GLOBULIN RATIO 1.7 (1.0-2.2); ALKALINE PHOSPHATASE 91 IU/L (42-121); ALT ALANINE AMINOTRANSFERASE 20 IU/L (10-60); AST ASPARTATE AMINOTRANSFERASE 18 IU/L (10-42); BILIRUBIN,TOTAL 0.5 mg/dL (0.2-1.0); BUN - BLOOD UREA NITROGEN 18 mg/dL (6-20); CALCIUM 9.7 mg/dL (8.5-10.3); CARBON DIOXIDE - CO2 22 mmol/L (21-32); CHLORIDE 104 mmol/L (101-111); GFR - MDRD 74 (>89); GLUCOSE 198 mg/dL (74-104); MAGNESIUM 1.7 mg/dL (1.7-2.3); POTASSIUM 3.8 mmol/L (3.5-4.5); SODIUM 132 mmol/L (135-145); TOTAL PROTEIN 6.7 g/dL (6.4-8.9)
[2023-09-25 20:23] LABS: LIPASE < 10 U/L (11-82)
--- NOTE | 2023-09-25 20:37 | XRAY Report ---
PROCEDURE: Chest 1V INDICATIONS: SOA TECHNIQUE: One view of the chest was acquired. COMPARISON: 10/06/2019 FINDINGS: Surgical changes and devices: None. Lungs and pleura: Mild perihilar airway thickening and mild patchy bibasilar opacities. No dense con solidation seen. No substantial pleural effusion or pneumothorax. Mediastinum: Mediastinal contours appear normal. Heart size is normal. Bones and chest wall: No suspicious bony lesions. Overlying soft tissues appear unremarkable. IMPRESSION: Mild perihilar airway thickening and mild patchy bibasilar opacities may represent an infectious or i nflammatory process. No dense consolidation seen. Early pulmonary edema/CHF may have a similar appear ance if clinically appropriate. Reviewed by: Garo Moreno MD on 09/25/2023 8:35 PM PDT Approved by: Garo Moreno MD on 09/25/2023 8:35 PM PDT Station ID: [id number]
[2023-09-25 20:47] LABS: CORONAVIRUS 229E-RESP PCR NOT DETECTED; CORONAVIRUS HKU1-RESP PCR NOT DETECTED
[2023-09-25 20:48] LABS: B. PARAPERTUSSIS- RESP PCR PAN NOT DETECTED; B. PERTUSSIS- RESP PCR PANEL NOT DETECTED; C. PNEUMONIAE- RESP PCR PANEL NOT DETECTED; CORONAVIRUS NL63-RESP PCR NOT DETECTED; CORONAVIRUS OC43-RESP PCR NOT DETECTED; HUMAN METAPNEUMOVIRUS NOT DETECTED; INFLUENZA A- RESP PCR PANEL NOT DETECTED; INFLUENZA B - RESP PCR PANEL NOT DETECTED; M. PNEUMONIAE- RESP PCR PANEL NOT DETECTED; PARAINFLUENZA VIRUS 1 NOT DETECTED; PARAINFLUENZA VIRUS 2 NOT DETECTED; PARAINFLUENZA VIRUS 3 NOT DETECTED; PARAINFLUENZA VIRUS 4 NOT DETECTED; RHINOVIRUS/ENTEROVIRUS NOT DETECTED; RSV- RESP PCR PANEL NOT DETECTED; SARS-CoV-2 -RESP PCR PANEL NOT DETECTED
[2023-09-25] MEDS ORDERED: cefTRIAXone 2 GM VIAL ONE (21:52)
[2023-09-25] MEDS: cefTRIAXone 2 GM in SODIUM CHLORIDE 0.9% MINIBAG 100 ML IV STA (21:53)
--- NOTE | 2023-09-25 22:04 | HISTORY & PHYSICAL EXAMINATION ---
Chief Complaint - Chief Complaint Chief Complaint: Weakness History of Present Illness - Admitted From Admitted From:: ER - History Obtained From Records Reviewed: Yes History obtained from: Patient, chart, staff Exam Limitations: Virtual exam - History of Present Illness HPI Comment/Other: H&P was conducted via video remotely, using Access Cart. Patient is in [place] Physician is in [place]. Pt's Donita is at bedside. 73 yo M with PMH of MS, ABELINO on BIPAP 5L at night, COPD on home O2 2L for ambulation, BPH with urinary retention, Fibromyalgia, Depression/Anxiety, GERD presented to the ER with c/o 5 day h/o weakness, fatigue, cough, Shortness of breath, N/V/D. Pt does have episodic weakness with MS flares, but his weakness has been worse than that. He has had cough with sputum, Shortness of breath, chest congestion. No known sick contacts. No travel. +subj F/C. +Nausea, no vomiting. +Loose stools x 4 days; has had 3-4 stools/day:no black or blood. No abdo pain, dysuria. Has had difficulty walking in the past couple of days d/t weakness. In the ER, Na 132, Glc 198, Resp viral panel neg EKG: NSR at 87 bpm, no STTw changes CXR: mild perihilar thickening and mild patchy bibasilar opacities. Pt was given Rocephin, Doxycycline, Tylenol in the ER. History - Past Medical History Cardiovascular: reports: None, Other Respiratory: reports: Asthma, COPD, Shortness of breath, Sleep apnea Neuro: reports: Multiple sclerosis Endocrine/Autoimmune: reports: None GI: reports: GERD, Other : reports: Benign prostate hypertrophy, Retention, Frequency HEENT: reports: Chronic sinusitis, Chronic hearing loss Psych: reports: Depression, Anxiety, Panic attacks, Claustrophobia Musculoskeletal: reports: Osteoarthritis, Fibromyalgia, Fatigue, Chronic back pain Derm: reports: Other MRSA Hx?: No - Past Surgical History General: reports: Colonoscopy, EGD Ortho: reports: Rotator cuff repair, Spine surgery Cardiovascular: reports: Other HEENT: reports: Tonsil/Adenoidectomy Meds/Allgy - Home Medications Home Medications: Ambulatory Orders Medication Instructions Recorded Confirmed Ketamine (50Mg/ml) [Ketalar] 100 mg IJ ONCE 09/12/12 11/28/21 Terazosin [Hytrin] 10 mg PO QPM 09/12/12 11/28/21 Venlafaxine [Effexor] 225 mg PO DAILY 09/12/12 11/28/21 Baclofen [Lioresal] 10 mg PO TID 04/04/13 11/28/21 Lidocaine HCl/D5w/Pf [Lidocaine 4 mg IV ONCE 04/04/13 11/28/21 0.4% in D5w Soln] Rizatriptan Benzoate [Maxalt] 10 mg PO DAILY 04/04/13 11/28/21 Ubidecarenone [Coenzyme Q10] 100 gm MC DAILY 04/04/13 11/28/21 ALPRAZolam [Alprazolam] 0.5 mg PO ONCE PRN 10/25/14 11/28/21 Albuterol Sulfate [Ventolin Hfa] 2 puffs IH Q4H PRN 10/25/14 11/28/21 Azelastine HCl [Astelin] 137 mcg NS BID 10/25/14 11/28/21 Cetirizine HCl [Aller-Jean Claude] 10 mg PO BID 10/25/14 11/28/21 Pregabalin [Lyrica] 100 mg PO TID 10/25/14 11/28/21 Atorvastatin Calcium [Lipitor] 20 mg PO QPM 10/26/14 11/28/21 Calcium & Magnesium Carbonate 2 each PO DAILY 10/26/14 11/28/21 [Antacid Gelatin Caplet] Cholecalciferol (Vitamin D3) 5,000 unit PO DAILY 10/26/14 11/28/21 [Vitamin D3] Chondroitin Sulfate A [Chondroitin 1,500 mg PO DAILY 10/26/14 11/28/21 Sulfate] Iron,Carb/Vit C/Vit B12/Folic 1 tab PO DAILY 10/26/14 11/28/21 [Iron 100 Plus Tablet] Phytosterol Combination No.1 1,000 mg PO DAILY 10/26/14 11/28/21 [Cholest Care] ondansetron HCL [Zofran] 4 mg PO Q6HR PRN #10 tablet 12/14/14 11/28/21 oxyCODONE [Roxicodone] 5 mg PO Q6H PRN #15 tablet 09/25/21 11/28/21 - Allergies Allergies/Adverse Reactions: Allergies Allergy/AdvReac Type Severity Reaction Status Date / Time tape AdvReac Intermediate Rash Uncoded 09/25/23 19:28 Review of Systems - All Other Systems All Other Systems: reports: Reviewed and negative Exam - Vital Signs Reviewed Vital Signs: Yes Vital Signs: Vital Signs x48h Temp Pulse Resp BP Pulse Ox 09/25/23 21:30 79 17 156/95 H 98 09/25/23 19:10 36.7 C 89 14 147/56 H 97 - Physical Exam General Appearance: positive: No acute distress, Alert Eyes Bilateral: positive: EOMI, No scleral icterus ENT: positive: Dry mucous membranes Respiratory: positive: Other (Access cart stethoscope not working; per ER Provider: CTA B/L, +tachypnea) Cardiovascular: positive: Other ( Access cart stethoscope not working; per ER Provider: RRR, no murmurs) Abdomen: positive: Other (per ER Provider: non-distended, NT, Soft) Extremities: positive: Other (per ER Provider: moves all extrem, no edema) Neurologic/Psychiatric: positive: Oriented x3, Mood/affect nml, Other (normal speech, cooperative; per ER Provider: NFD) Conclusion/Plan - Problem List (1) Pneumonia Conclusion/Plan: Pneumonia Shortness of breath Cough Weakness -Resp viral panel neg -EKG: NSR at 87 bpm, no STTw changes -CXR: mild perihilar thickening and mild patchy bibasilar opacities. -Pt was given Rocephin, Doxycycline, Tylenol in the ER. -admit to Med Surg with Tele -continue O2 support -Rocephin/Azithro -consider P.T consult prior to D/C Nausea Diarrhea Hyponatremia -Na 132 -IVF -clear liquid diet; advance as tolerated -anti-emetics PRN -stool culture and CDiff Hyperglycemia -Glc 198 -check Hgba1c MS -med rec not available yet; med rec when available ABELINO on BIPAP 5L at night -BIPAP ordered for night COPD on home O2 2L for ambulation -med rec not available yet; med rec when available -continue O2 support -Duonebs PRN BPH with urinary retention -med rec not available yet; med rec when available Fibromyalgia Depression/Anxiety -med rec not available yet; med rec when available VTE Prophylaxis: Lovenox SQ Code Status: D/W pt; he is Full Code ~Lillie León MD Hospitalist - Lab Results Lab results reviewed: Yes Fish Bones: 09/25/23 19:58 09/25/23 19:58
[2023-09-25] MEDS ORDERED: SODIUM CHLORIDE FLUSH 0.9% 10 ML SYRINGE IVP PRN (22:17)
[2023-09-25] MEDS ORDERED: PROCHLORPERAZINE 10 MG/2 ML VIAL IVP PRN (22:17)
[2023-09-25] MEDS: ACETAMINOPHEN 325 MG TABLET PO STA (22:27)
[2023-09-25] MEDS: DOXYCYCLINE INJ 100 MG in SODIUM CHLORIDE 0.9% MINIBAG 100 ML IV STA (22:31)
[2023-09-25] MEDS ORDERED: IPRATROPIUM/ALBUTEROL 3 ML NEB INH PRN (22:51)
[2023-09-25] MEDS: LACTATED RINGERS 1,000 ML IV SCH (23:39)
[2023-09-25] MEDS: ONDANSETRON ODT 4 MG TABLET TL PRN (23:39)
[2023-09-25] MEDS: SODIUM CHLORIDE FLUSH 0.9% 10 ML SYRINGE IVP SCH (23:40)
[2023-09-26 05:05] LABS: BASOPHILS % (AUTO) 0.3 %; EOSINOPHILS # (AUTO) 0.1 10^3/uL (0.0-0.7); EOSINOPHILS % (AUTO) 0.9 %; HCT - HEMATOCRIT 40.1 % (42.0-52.0); HGB - HEMOGLOBIN 13.9 g/dL (14.0-18.0); LYMPHOCYTES # (AUTO) 1.9 10^3/uL (1.5-3.5); LYMPHOCYTES % (AUTO) 19.2 %; MEAN CORPUSCULAR HEMOGLOBIN 30.9 pg (27.0-31.0); MEAN CORPUSCULAR HGB CONC 34.7 g/dL (32.0-36.0); MEAN CORPUSCULAR VOLUME 89.1 fL (80.0-94.0); MEAN PLATELET VOLUME 10.8 fL (7.4-11.4); MONOCYTES # (AUTO) 0.8 10^3/uL (0.0-1.0); MONOCYTES % (AUTO) 8.6 %; NEUTROPHILS # (AUTO) 6.9 10^3/uL (1.5-6.6); NEUTROPHILS % (AUTO) 70.7 %; PLT - PLATELET COUNT 199 10^3/uL (130-450); RED CELL DISTRIBUTION WIDTH 12.2 % (12.0-15.0); WHITE BLOOD COUNT 9.7 x10^3/uL (4.8-10.8)
[2023-09-26 05:21] LABS: CALCIUM 9.3 mg/dL (8.5-10.3); CREATININE 1.1 mg/dL (0.6-1.3); MAGNESIUM 1.7 mg/dL (1.7-2.3); POTASSIUM 3.9 mmol/L (3.5-4.5)
[2023-09-26] MEDS: ACETAMINOPHEN 325 MG TABLET PO PRN (05:46)
[2023-09-26] MEDS: SUMAtriptan 25 MG TABLET PO PRN ×2 (08:55→20:29)
[2023-09-26] MEDS: ENOXAPARIN 40 MG/0.4 ML SYRINGE SUBQ SCH (08:57)
[2023-09-26] MEDS: AZITHROMYCIN INJ 500 MG in SODIUM CHLORIDE 0.9% 250 ML IV SCH (08:59)
--- NOTE | 2023-09-26 10:06 | PHARMACY PROGRESS NOTE ---
- Best Possible Medication History Admit Date and Time: 09/25/23 4745 Processed by: Pharmacy Medications reviewed in ED?: Yes Medication History completed: Yes Patient Interview: Completed Secondary Source(s): Written medication list, Pharmacy records, Insurance records As the person ultimately responsible for medication therapy, providers are able to order a medication from an existing home medication list in [facility] via the "Reconcile Routine" prior to Confirmation of that medication by computer support specialist. Such practice is discouraged except when the physician, in their clinical judgment, deems that a medical need exists for a medication without regard to previous use.
[2023-09-26 10:59] LABS: ESTIMATED AVERAGE GLUCOSE 137 mg/dL (70-100); HEMOGLOBIN A1c% 6.4 % (4.27-6.07)
--- NOTE | 2023-09-26 11:21 | PROVIDER PROGRESS NOTE ---
Subjective - Prog Note Date Prog Note Date: 09/26/23 Prog Note Time: 11:20 - Subjective Pt reports feeling: No change Subjective: The patient is a 73-year-old male. His past medical history significant for multiple sclerosis, obstructive sleep apnea on BiPAP at night. He uses 5 L of oxygen at night as well. He has underlying COPD on home oxygen at 2 L for ambulation but usually is stable on room air. He has BPH with urinary retention, fibromyalgia, depression and anxiety along with GERD. The patient presents to the emergency room with a 5-day history of weakness fatigue and cough. He has had a cough and he has had issues with nausea and diarrhea for the past 4 days. Workup in the emergency room revealed an underlying pneumonia and he was started on IV azithromycin and IV Rocephin. This morning when I went to see the patient the patient is curled up in the bed. He is in quite a bit of distress with a severe headache and severe nausea. It was difficult to get a good review of systems. He tells me his cough is somewhat improved and he has not had any further diarrhea but the nausea is rather overwhelming as is the headache. He has been given Tylenol for the headache with no relief. He states he takes Maxalt daily at home. Current Medications - Current Medications Current Medications: Acetaminophen 650 mg p.o. every 4 hours as needed DuoNebs 3 mL inhalation every 4 hours as needed Azithromycin 250 mg IV daily Baclofen 10 mg p.o. 3 times daily Ceftriaxone 2 g daily Lovenox 40 mg subcu daily Finasteride 5 mg p.o. daily Omeprazole 40 mg daily Lipitor 20 mg daily Mexiletine 300 mg p.o. twice daily Oxybutynin 10 mg daily Zofran ODT every 6 hours as needed nausea Trileptal 150 mg p.o. twice daily Lyrica 200 mg p.o. 3 times daily Prochlorperazine 10 mg IV every 6 hours as needed Senna 8.6 mg p.o. as needed constipation Imitrex 100 mg p.o. once Terazosin 10 mg p.o. every afternoon Venlafaxine 225 mg p.o. daily Objective - Vital Signs/Intake & Output Reviewed Vital Signs: Yes Vital Signs: Vital Signs x48h Temp Pulse Resp BP Pulse Ox 09/26/23 07:55 36.6 C 72 17 140/71 H 96 09/26/23 05:41 36.7 C 72 20 125/77 95 Intake & Output: Intake & Output 09/23/23 09/24/23 09/25/23 09/26/23 23:59 23:59 23:59 23:59 Intake Total 100 990 Output Total 650 Balance 100 340 - Objective General Appearance: positive: Moderate distress (The patient is lying on his side curled up. He appears to be moderately distressed and states he has a severe headache and he is severely nauseated.) Eyes Bilateral: positive: Normal inspection, PERRL ENT: positive: ENT inspection nml Neck: positive: Nml inspection Respiratory: positive: Chest non-tender, No respiratory distress, Breath sounds nml Cardiovascular: positive: Regular rate & rhythm, No murmur, No gallop. negative: Friction rub Abdomen: positive: Non-tender, No organomegaly, Nml bowel sounds Skin: positive: Color nml, No rash, Warm, Dry Extremities: positive: Non-tender, Nml appearance Neurologic/Psychiatric: positive: Oriented x3, CN's nml (2-12) - Lab Results Fish Bones: 09/26/23 04:50 09/26/23 04:50 Other Labs: Lab Results x24hrs 09/26/23 09/26/23 09/26/23 Range/Units 04:50 04:50 04:50 WBC 9.7 (4.8-10.8) x10^3/uL RBC 4.50 L (4.70-6.10) 10^6/uL Hgb 13.9 L (14.0-18.0) g/dL Hct 40.1 L (42.0-52.0) % MCV 89.1 (80.0-94.0) fL MCH 30.9 (27.0-31.0) pg MCHC 34.7 (32.0-36.0) g/dL RDW 12.2 (12.0-15.0) % Plt Count 199 (130-450) 10^3/uL MPV 10.8 (7.4-11.4) fL Neut # (Auto) 6.9 H (1.5-6.6) 10^3/uL Lymph # (Auto) 1.9 (1.5-3.5) 10^3/uL Kershaw # (Auto) 0.8 (0.0-1.0) 10^3/uL Eos # (Auto) 0.1 (0.0-0.7) 10^3/uL Baso # (Auto) 0.0 (0.0-0.1) 10^3/uL Absolute Nucleated RBC 0.00 x10^3/uL Nucleated RBC % 0.0 /100WBC Sodium 136 (135-145) mmol/L Potassium 3.9 (3.5-4.5) mmol/L Chloride 104 (101-111) mmol/L Carbon Dioxide 27 (21-32) mmol/L Anion Gap 5.0 L (6-13) BUN 15 (6-20) mg/dL Creatinine 1.1 (0.6-1.3) mg/dL Estimated GFR (MDRD) 66 L (>89) Glucose 122 H (74-104) mg/dL Estimat Average Glucose 137 H (70-100) mg/dL Hemoglobin A1c % 6.4 H (4.27-6.07) % Calcium 9.3 (8.5-10.3) mg/dL Magnesium 1.7 (1.7-2.3) mg/dL Total Bilirubin (0.2-1.0) mg/dL AST (10-42) IU/L ALT (10-60) IU/L Alkaline Phosphatase (42-121) IU/L Troponin I High Sens (2.3-19.7) ng/L Total Protein (6.4-8.9) g/dL Albumin (3.2-5.5) g/dL Globulin (2.1-4.2) g/dL Albumin/Globulin Ratio (1.0-2.2) Lipase (11-82) U/L Nasal Adenovirus (PCR) Nasal B. parapertussis DNA (PCR) Nasal Coronavir 229E PCR Nasal Coronavir HKU1 PCR Nasal Coronavir NL63 PCR Nasal Coronavir OC43 PCR Nasal Enterovir/Rhinovir PCR Nasal Influenza B PCR Nasal Influenza A PCR Nasal Parainfluen 1 PCR Nasal Parainfluen 2 PCR Nasal Parainfluen 3 PCR Nasal Parainfluen 4 PCR Nasal RSV (PCR) Nasal B.pertussis DNA PCR Nasal C.pneumoniae (PCR) Augustus Human Metapneumo PCR Nasal M.pneumoniae (PCR) Nasal SARS-CoV-2 (PCR) 09/25/23 09/25/23 09/25/23 Range/Units 19:58 19:58 19:58 WBC 9.7 (4.8-10.8) x10^3/uL RBC 4.78 (4.70-6.10) 10^6/uL Hgb 14.8 (14.0-18.0) g/dL Hct 42.0 (42.0-52.0) % MCV 87.9 (80.0-94.0) fL MCH 31.0 (27.0-31.0) pg MCHC 35.2 (32.0-36.0) g/dL RDW 12.0 (12.0-15.0) % Plt Count 222 (130-450) 10^3/uL MPV 11.1 (7.4-11.4) fL Neut # (Auto) 8.0 H (1.5-6.6) 10^3/uL Lymph # (Auto) 1.1 L (1.5-3.5) 10^3/uL Kershaw # (Auto) 0.6 (0.0-1.0) 10^3/uL Eos # (Auto) 0.0 (0.0-0.7) 10^3/uL Baso # (Auto) 0.0 (0.0-0.1) 10^3/uL Absolute Nucleated RBC 0.00 x10^3/uL Nucleated RBC % 0.0 /100WBC Sodium 132 L (135-145) mmol/L Potassium 3.8 (3.5-4.5) mmol/L Chloride 104 (101-111) mmol/L Carbon Dioxide 22 (21-32) mmol/L Anion Gap 6.0 (6-13) BUN 18 (6-20) mg/dL Creatinine 1.0 (0.6-1.3) mg/dL Estimated GFR (MDRD) 74 L (>89) Glucose 198 H (74-104) mg/dL Estimat Average Glucose (70-100) mg/dL Hemoglobin A1c % (4.27-6.07) % Calcium 9.7 (8.5-10.3) mg/dL Magnesium 1.7 (1.7-2.3) mg/dL Total Bilirubin 0.5 (0.2-1.0) mg/dL AST 18 (10-42) IU/L ALT 20 (10-60) IU/L Alkaline Phosphatase 91 (42-121) IU/L Troponin I High Sens 4.9 (2.3-19.7) ng/L Total Protein 6.7 (6.4-8.9) g/dL Albumin 4.2 (3.2-5.5) g/dL Globulin 2.5 (2.1-4.2) g/dL Albumin/Globulin Ratio 1.7 (1.0-2.2) Lipase < 10 L (11-82) U/L Nasal Adenovirus (PCR) Nasal B. parapertussis DNA (PCR) Nasal Coronavir 229E PCR Nasal Coronavir HKU1 PCR Nasal Coronavir NL63 PCR Nasal Coronavir OC43 PCR Nasal Enterovir/Rhinovir PCR Nasal Influenza B PCR Nasal Influenza A PCR Nasal Parainfluen 1 PCR Nasal Parainfluen 2 PCR Nasal Parainfluen 3 PCR Nasal Parainfluen 4 PCR Nasal RSV (PCR) Nasal B.pertussis DNA PCR Nasal C.pneumoniae (PCR) Augustus Human Metapneumo PCR Nasal M.pneumoniae (PCR) Nasal SARS-CoV-2 (PCR) 09/25/23 Range/Units 19:26 WBC (4.8-10.8) x10^3/uL RBC (4.70-6.10) 10^6/uL Hgb (14.0-18.0) g/dL Hct (42.0-52.0) % MCV (80.0-94.0) fL MCH (27.0-31.0) pg MCHC (32.0-36.0) g/dL RDW (12.0-15.0) % Plt Count (130-450) 10^3/uL MPV (7.4-11.4) fL Neut # (Auto) (1.5-6.6) 10^3/uL Lymph # (Auto) (1.5-3.5) 10^3/uL Kershaw # (Auto) (0.0-1.0) 10^3/uL Eos # (Auto) (0.0-0.7) 10^3/uL Baso # (Auto) (0.0-0.1) 10^3/uL Absolute Nucleated RBC x10^3/uL Nucleated RBC % /100WBC Sodium (135-145) mmol/L Potassium (3.5-4.5) mmol/L Chloride (101-111) mmol/L Carbon Dioxide (21-32) mmol/L Anion Gap (6-13) BUN (6-20) mg/dL Creatinine (0.6-1.3) mg/dL Estimated GFR (MDRD) (>89) Glucose (74-104) mg/dL Estimat Average Glucose (70-100) mg/dL Hemoglobin A1c % (4.27-6.07) % Calcium (8.5-10.3) mg/dL Magnesium (1.7-2.3) mg/dL Total Bilirubin (0.2-1.0) mg/dL AST (10-42) IU/L ALT (10-60) IU/L Alkaline Phosphatase (42-121) IU/L Troponin I High Sens (2.3-19.7) ng/L Total Protein (6.4-8.9) g/dL Albumin (3.2-5.5) g/dL Globulin (2.1-4.2) g/dL Albumin/Globulin Ratio (1.0-2.2) Lipase (11-82) U/L Nasal Adenovirus (PCR) NOT DETECTED Nasal B. parapertussis DNA (PCR) NOT DETECTED Nasal Coronavir 229E PCR NOT DETECTED Nasal Coronavir HKU1 PCR NOT DETECTED Nasal Coronavir NL63 PCR NOT DETECTED Nasal Coronavir OC43 PCR NOT DETECTED Nasal Enterovir/Rhinovir PCR NOT DETECTED Nasal Influenza B PCR NOT DETECTED Nasal Influenza A PCR NOT DETECTED Nasal Parainfluen 1 PCR NOT DETECTED Nasal Parainfluen 2 PCR NOT DETECTED Nasal Parainfluen 3 PCR NOT DETECTED Nasal Parainfluen 4 PCR NOT DETECTED Nasal RSV (PCR) NOT DETECTED Nasal B.pertussis DNA PCR NOT DETECTED Nasal C.pneumoniae (PCR) NOT DETECTED Augustus Human Metapneumo PCR NOT DETECTED Nasal M.pneumoniae (PCR) NOT DETECTED Nasal SARS-CoV-2 (PCR) NOT DETECTED ABX Reporting Has patient been on IV antibiotics over the past 48 hours?: No Sepsis Event Note (H) - Evaluation Current Stage of Sepsis: Ruled out Assessment/Plan - Problem List (1) Pneumonia Impression: The patient has evidence of underlying pneumonia. He has been started on IV Rocephin and IV Azithromycin. This is the first day of treatment. The patient is still having some nausea. Cough and diarrhea are somewhat improved (2) Migraine Impression: The patient has a severe headache this morning. Tylenol did not help. He also is having severe nausea.He takes Maxalt daily at home. He was given a dose of imitrex today. At this point the headache is severe, he is nauseated and appears to be ill. (3) Multiple sclerosis Impression: Quiescent for now. Continue home regimen (4) Chronic respiratory failure Impression: The patient uses 5L at night via his bipap. He uses 2L of oxygen while ambulating. Currently his respiratory is stable (5) ABELINO treated with BiPAP Impression: Continue bipap (6) COPD (chronic obstructive pulmonary disease) Impression: No evidence of exacerbation. Stable (7) Moderate recurrent major depression Impression: Continue Venlafaxine 225 mg daily (8) BPH (benign prostatic hyperplasia) Impression: Continue finasteride 5 mg daily (9) Fibromyalgia Impression: Continue home regimen (10) GERD (gastroesophageal reflux disease) Impression: Continue omeprazole 40 mg daily (11) Vitamin D deficiency Impression: Continue home regimen (12) Hyponatremia Impression: Stable Time spent: 35 minutes
[2023-09-26] MEDS ORDERED: SENNA 8.6 MG TABLET PO PRN (11:29)
[2023-09-26] MEDS: PANTOPRAZOLE 40 MG TABLET PO SCH (12:22)
[2023-09-26] MEDS: PREGABALIN 100 MG CAPSULE PO SCH (14:29)
[2023-09-26] MEDS: BACLOFEN 10 MG TABLET PO SCH (14:30)
[2023-09-26] MEDS: KETAMINE PO SCH ×2 (17:21→21:07)
[2023-09-26] MEDS: cefTRIAXone 2 GM in SODIUM CHLORIDE 0.9% MINIBAG 100 ML IV SCH (21:02)
[2023-09-26] MEDS: OXcarbazepine 150 MG TABLET PO SCH (21:05)
[2023-09-26] MEDS: FINASTERIDE 5 MG TABLET PO SCH (21:05)
[2023-09-26] MEDS: TERAZOSIN 2 MG CAPSULE PO SCH (21:05)
[2023-09-26] MEDS: ATORVASTATIN 10 MG TABLET PO SCH (21:05)
[2023-09-27 05:20] LABS: BASOPHILS % (AUTO) 0.6 %; EOSINOPHILS # (AUTO) 0.1 10^3/uL (0.0-0.7); EOSINOPHILS % (AUTO) 1.2 %; HCT - HEMATOCRIT 37.3 % (42.0-52.0); HGB - HEMOGLOBIN 12.9 g/dL (14.0-18.0); LYMPHOCYTES # (AUTO) 1.8 10^3/uL (1.5-3.5); LYMPHOCYTES % (AUTO) 27.5 %; MEAN CORPUSCULAR HGB CONC 34.6 g/dL (32.0-36.0); MEAN CORPUSCULAR VOLUME 89.7 fL (80.0-94.0); MEAN PLATELET VOLUME 10.7 fL (7.4-11.4); MONOCYTES # (AUTO) 0.6 10^3/uL (0.0-1.0); NEUTROPHILS % (AUTO) 61.5 %; PLT - PLATELET COUNT 192 10^3/uL (130-450); RED BLOOD COUNT 4.16 10^6/uL (4.70-6.10); RED CELL DISTRIBUTION WIDTH 12.2 % (12.0-15.0); WHITE BLOOD COUNT 6.5 x10^3/uL (4.8-10.8)
[2023-09-27 05:44] LABS: CALCIUM 9.1 mg/dL (8.5-10.3); CREATININE 0.9 mg/dL (0.6-1.3); MAGNESIUM 1.8 mg/dL (1.7-2.3); POTASSIUM 3.5 mmol/L (3.5-4.5)
--- NOTE | 2023-09-27 07:57 | Discharge Plan ---
Discharge Plan Problem Reviewed?: Yes Disposition: Home, Self Care Condition: Good Prescriptions: Doxycycline [Vibramycin] 100 mg PO BID #6 tablet Diet: Regular Activity Restrictions: Activity as Tolerated (Use a cane or walker to ambulate) Weight Bearing: Full Weight Health Concerns: Pneumonia- Improving Migraine headache- Improving Assessment: 1. Pneumonia The patient completed 2 days of IV Rocephin and Azithromycin. He will complete 3 more days of doxycycline to complete a 5 day course of therapy. This was mild. The patient is greatly improved. He should follow-up with his primary care provider next week 2. Migraine Yesterday the patient had a severe migraine. He was given a dose of Imitrex with relief. Today his headache has all but resolved. 3. Multiple sclerosis No evidence of active flare. He will resume his home regimen at discharge 4. Chronic respiratory failure The patient uses 5 L of oxygen at night via his BiPAP. He uses 2 L of oxygen while ambulating. He does not require oxygen while at rest and has required no supplemental oxygen during this hospitalization 5. Obstructive sleep apnea treated with BiPAP Continue BiPAP in the home setting 6. COPD No evidence of exacerbation. Stable 7. Moderate recurrent major depression Continue venlafaxine 225 mg daily 8. BPH Continue finasteride 5 mg daily 9. Fibromyalgia Continue home regimen 10. GERD Resume omeprazole 40 mg daily 11. Vitamin D deficiency Continue home regimen 12. Mild hyponatremia Stable No Smoking: If you smoke, Please STOP! Call for help. Follow-up with: Nicole Kohli ARNP [Provider Admit Priv/Credential] -
[2023-09-27 07:59] VITALS: BP 144/79; O2SAT 94
--- NOTE | 2023-09-27 08:15 | DISCHARGE SUMMARY ---
Discharge Summary Admit Date: 09/25/23 Discharge Date: 10/04/23 Discharging Provider: Concepción Lambert PA-C Primary Care Provider: Nicole VALLE Code Status: Do Not Attempt Resuscitation Condition at Discharge: Good Discharge Disposition: 01 Home, Self Care - DIAGNOSES Discharge Diagnoses with Status of Each Condition: 1. Pneumonia The patient completed 2 days of IV Rocephin and Azithromycin. He will complete 3 more days of doxycycline to complete a 5 day course of therapy. This was mild. The patient is greatly improved. He should follow-up with his primary care provider next week 2. Migraine Yesterday the patient had a severe migraine. He was given a dose of Imitrex with relief. Today his headache has all but resolved. 3. Multiple sclerosis No evidence of active flare. He will resume his home regimen at discharge 4. Chronic respiratory failure The patient uses 5 L of oxygen at night via his BiPAP. He uses 2 L of oxygen while ambulating. He does not require oxygen while at rest and has required no supplemental oxygen during this hospitalization 5. Obstructive sleep apnea treated with BiPAP Continue BiPAP in the home setting 6. COPD No evidence of exacerbation. Stable 7. Moderate recurrent major depression Continue venlafaxine 225 mg daily 8. BPH Continue finasteride 5 mg daily 9. Fibromyalgia Continue home regimen 10. GERD Resume omeprazole 40 mg daily 11. Vitamin D deficiency Continue home regimen 12. Mild hyponatremia Stable - HPI History of Present Illness: From the admission HP: H&P was conducted via video remotely, using Access Cart. [place] is in [place] Physician is in [place]. Pt's Donita is at bedside. 73 yo M with PMH of MS, ABELINO on BIPAP 5L at night, COPD on home O2 2L for ambulation, BPH with urinary retention, Fibromyalgia, Depression/Anxiety, GERD presented to the ER with c/o 5 day h/o weakness, fatigue, cough, Shortness of breath, N/V/D. Pt does have episodic weakness with MS flares, but his weakness has been worse than that. He has had cough with sputum, Shortness of breath, chest congestion. No known sick contacts. No travel. +subj F/C. +Nausea, no vomiting. +Loose stools x 4 days; has had 3-4 stools/day:no black or blood. No abdo pain, dysuria. Has had difficulty walking in the past couple of days d/t weakness. In the ER, Na 132, Glc 198, Resp viral panel neg EKG: NSR at 87 bpm, no STTw changes CXR: mild perihilar thickening and mild patchy bibasilar opacities. Pt was given Rocephin, Doxycycline, Tylenol in the ER. - HOSPITAL COURSE Hospital Course: The patient was admitted to the hospital. He was found to have evidence of an early pneumonia. He was placed on IV Zithromax and IV Rocephin. The patient has done quite well from a respiratory standpoint and is stable on the day of discharge. He is going to complete 3 more days of p.o. doxycycline at discharge. The patient's hospitalization was complicated by the development of a severe migraine. Yesterday the patient was having severe nausea and severe headache and was in quite a bit of distress. He was treated with Imitrex and eventually his headache subsided. The patient takes Maxalt at home which will be continued. This morning when I saw the patient he is resting comfortably. His headache is resolved. He is feeling much better and desires to go home. At this point maximum hospital benefit has been reached. The patient will be discharged today in stable condition. - ALLERGIES Allergies/Adverse Reactions: Allergies Allergy/AdvReac Type Severity Reaction Status Date / Time tape AdvReac Intermediate Rash Uncoded 09/25/23 19:28 - MEDICATIONS Home Medications: Ambulatory Orders Medication Instructions Recorded Confirmed Terazosin [Hytrin] 10 mg PO QPM 09/12/12 09/25/23 Baclofen [Lioresal] 10 mg PO TID 04/04/13 09/26/23 Rizatriptan Benzoate [Maxalt] 10 mg PO ONCE PRN 04/04/13 09/26/23 Pregabalin [Lyrica] 200 mg PO TID 10/25/14 09/26/23 Atorvastatin Calcium [Lipitor] 20 mg PO QPM 10/26/14 09/25/23 Finasteride [Proscar] 5 mg PO QPM 09/25/23 09/26/23 OXcarbazepine [Trileptal] 150 mg PO BID 09/25/23 09/26/23 Omeprazole 40 mg PO DAILY 09/25/23 09/25/23 Sennosides 8.6 mg PO PRN PRN 09/25/23 09/25/23 Ketamine 10 Mg Cap 20 mg PO 1400,2100 09/26/23 09/26/23 Ketamine 10 Mg Cap 30 mg PO DAILY 09/26/23 09/26/23 Mexiletine HCl 300 mg PO BID 09/26/23 09/26/23 Venlafaxine Besylate [Venlafaxine 225 mg PO DAILY 09/26/23 09/26/23 Besylate ER] ondansetron HCL [Zofran] 4 mg PO Q12H PRN 09/26/23 09/26/23 oxyBUTYnin chloride [Oxybutynin 10 mg PO DAILY 09/26/23 09/26/23 Chloride ER] Doxycycline [Vibramycin] 100 mg PO BID #6 tablet 09/27/23 Venlafaxine ER [Effexor ER] 225 mg PO DAILY cap 09/27/23 - PHYSICAL EXAM AT DISCHARGE General Appearance: positive: No acute distress Eyes Bilateral: positive: Normal inspection ENT: positive: ENT inspection nml Neck: positive: Nml inspection Respiratory: positive: Chest non-tender, No respiratory distress, Breath sounds nml Cardiovascular: positive: Regular rate & rhythm, No murmur, No gallop. negative: Friction rub Abdomen: positive: Non-tender, No organomegaly, Nml bowel sounds Skin: positive: Color nml, No rash, Warm, Dry Extremities: positive: Non-tender, Full ROM, Nml appearance - LABS Result Diagrams: 09/27/23 05:00 09/27/23 05:00 - SEPSIS Current Stage of Sepsis: Ruled out - QUALITY (Female Hip Fx Only) Was patient sent home on osteoporosis medication?: No - FOLLOW UP Follow Up: Primary care in 1 week - TIME SPENT Time Spent in Discharge (Minutes): 45
[2023-09-27] MEDS: VENLAFAXINE ER 75 MG CAPSULE PO SCH (08:30)
[2023-09-27] MEDS: SOLIFENACIN SUCCINATE 5 MG TABLET PO SCH (08:30)
--- NOTE | 2023-09-27 10:16 | DISCHARGE SUMMARY ---
Discharge Summary Admit Date: 09/24/23 Discharge Date: 09/27/23 Discharging Provider: Concepción Lambert PA-C Primary Care Provider: Staff Code Status: Do Not Attempt Resuscitation Condition at Discharge: Good Discharge Disposition: 03 SNF DC/Xfer - DIAGNOSES Discharge Diagnoses with Status of Each Condition: 1. Acute hypoxic respiratory failure Secondary to aspiration event and aspiration pneumonia. Resolved 2. Aspiration pneumonia The patient has completed a course of antibiotic therapy 3. Acute metabolic encephalopathy Multifactorial secondary to underlying infection and possible breakthrough seizure. His encephalopathy initially resolved. He was discharged yesterday and prior to leaving the hospital he had an episode of unresponsiveness. The nurse was only gone from the room for a few minutes and came back and he was unresponsive. Initially it was felt that the patient possibly could have had an acute CVA. He did have some right facial droop at the time. A stat CT scan was unremarkable. Over the next couple of hours the patient woke up and his mentation returned slowly to baseline. Cannot rule out that he possibly had another seizure.At this point the patient's family is requesting hospice at discharge. No further workup and would treat supportively should this happen a gain. 4. Seizure disorder His Keppra has been increased to 1000 mg p.o. twice daily. He had a breakthrough seizure prompting this admission. Possibly had another seizure yesterday afternoon. Continue increased dose of Keppra 5. Dysphagia Somewhat improved. Continue modified diet 6. Macrocytic anemia along with iron deficiency anemia Stable. Continue ferrous sulfate 7. Hematuria The patient's family and healthcare power of commercial litigation attorney is leaning towards hospice which is tentatively being set up at discharge. If they change their mind further workup for this can be obtained as an outpatient 8. Positive blood culture 1 out of 2 blood cultures positive for Staph epidermidis. This is likely contaminant. No further workup 9. Hyperglycemia Improved. Likely reactive 10. History of hyperlipidemia Currently on no medical therapy 11. Mild protein calorie malnutrition Continue to encourage good p.o. intake. 12. Abnormal chest CT The patient had a CT angiography of the chest which revealed no evidence of pulmonary embolism. The radiologist indicated that they could not rule out an endobronchial lesion. The patient CT scan was reviewed and it was felt that this was more likely atelectasis. The family is leaning towards hospice. They will make a decision for definitively within the next week. If they put off pursuing hospice the patient should have a repeat CT scan in 3 months. - HPI History of Present Illness: From the admission HP: [id number], resident of a nursing facility, c dementia, seizure disorder, hyperlipidemia, hx of alcohol & meth abuse, and medical nonadherence who presents to the ED with report of increase confusion and acutely hypoxemic with SaO2 85% on room air at the nursing facility. There was report of fever and cough. Patient was found by EMS to have upper airway gurgling noises. Patient seen in the ED and currently no following commands and nonverbal. He is alert. In the ED, cxr is negative. no leukocytosis. patient noted to require O2 support 4-5L NC to maintain 95% SaO2. - HOSPITAL COURSE Hospital Course: The patient was admitted to the hospital. He was placed on IV Keppra. It was felt that he had aspirated and had a mild aspiration pneumonia. The patient was treated with IV Rocephin and IV Zithromax and completed 3 days of treatment here in the hospital. Overall the patient has improved. He initially was quite confused but his mentation did improve back to his cognitive baseline by the time of discharge. Initially the patient was having significant difficulty swallowing and was made NPO. But as we treated his pneumonia he improved. Currently on a mechanical soft diet which should be continued at the facility. Yesterday afternoon the patient had another episode of unresponsiveness. Stat CT scan was unremarkable. Cannot rule out that the patient possibly had another breakthrough seizure although there was no witnessed seizure activity. Over the next couple of hours the patient woke up and his mentation improved and this morning he is back to his cognitive baseline. During the course of this hospitalization discussions were had with the patient's family. The patient's sister Niko Griggs [phone] is his healthcare power of commercial litigation attorney. The patient has a previous POLST that indicates that he is a full code. However the family has discussed his situation and have changed his CODE STATUS to DO NOT RESUSCITATE. The family also is requesting that hospice be set up at the facility at discharge. They do not want any aggressive care or workup going forward. They would like to manage his symptoms and keep the patient comfortable and maximize his quality of life. They do not want him coming back to the hospital unless it is for difficult to control end-of-life issues. A new POLST has not been filled out at this point as there has been no family members at the hospital to sign and this will need to be updated at the facility. At this point the patient is back to his baseline and desires to go back to his facility. He will be transferred back to [facility] this afternoon in stable condition. - ALLERGIES Allergies/Adverse Reactions: Allergies Allergy/AdvReac Type Severity Reaction Status Date / Time tape AdvReac Intermediate Rash Uncoded 09/25/23 19:28 - MEDICATIONS Home Medications: Ambulatory Orders Medication Instructions Recorded Confirmed Terazosin [Hytrin] 10 mg PO QPM 09/12/12 09/25/23 Baclofen [Lioresal] 10 mg PO TID 04/04/13 09/26/23 Rizatriptan Benzoate [Maxalt] 10 mg PO ONCE PRN 04/04/13 09/26/23 Pregabalin [Lyrica] 200 mg PO TID 10/25/14 09/26/23 Atorvastatin Calcium [Lipitor] 20 mg PO QPM 10/26/14 09/25/23 Finasteride [Proscar] 5 mg PO QPM 09/25/23 09/26/23 OXcarbazepine [Trileptal] 150 mg PO BID 09/25/23 09/26/23 Omeprazole 40 mg PO DAILY 09/25/23 09/25/23 Sennosides 8.6 mg PO PRN PRN 09/25/23 09/25/23 Ketamine 10 Mg Cap 20 mg PO 1400,2100 09/26/23 09/26/23 Ketamine 10 Mg Cap 30 mg PO DAILY 09/26/23 09/26/23 Mexiletine HCl 300 mg PO BID 09/26/23 09/26/23 Venlafaxine Besylate [Venlafaxine 225 mg PO DAILY 09/26/23 09/26/23 Besylate ER] ondansetron HCL [Zofran] 4 mg PO Q12H PRN 09/26/23 09/26/23 oxyBUTYnin chloride [Oxybutynin 10 mg PO DAILY 09/26/23 09/26/23 Chloride ER] Doxycycline [Vibramycin] 100 mg PO BID #6 tablet 09/27/23 Venlafaxine ER [Effexor ER] 225 mg PO DAILY cap 06/23/24 - PHYSICAL EXAM AT DISCHARGE General Appearance: positive: No acute distress, Alert Eyes Bilateral: positive: Normal inspection ENT: positive: ENT inspection nml Neck: positive: Nml inspection Respiratory: positive: Chest non-tender, No respiratory distress, Breath sounds nml Cardiovascular: positive: Regular rate & rhythm, No murmur, No gallop. negative: Friction rub Skin: positive: Color nml, No rash, Warm Extremities: positive: Non-tender, Full ROM Neurologic/Psychiatric: positive: Oriented x3, CN's nml (2-12), Disoriented to place, Disoriented to time - LABS Result Diagrams: 09/27/23 05:00 09/27/23 05:00 - SEPSIS Current Stage of Sepsis: Ruled out - QUALITY (Female Hip Fx Only) Was patient sent home on osteoporosis medication?: No (Not applicable) - FOLLOW UP Follow Up: Hospice will be assuming his care. Staff MD until hospice can be set up - TIME SPENT Time Spent in Discharge (Minutes): 45
== END 2023-09-27 11:35 | DRG 194 ==
LOC: EDUNIT# → ED 19:10 → MS2 22:18
PROVIDERS: ADMIT Internal Medicine; ATTEND Physician Assistant
DX: J18.9 Pneumonia, unspecified organism (principal); E87.1 Hypo-osmolality and hyponatremia; F33.1 Major depressive disorder, recurrent, moderate; J44.0 Chronic obstructive pulmonary disease with (acute) lower respiratory infection; J96.10 Chronic respiratory failure, unspecified whether with hypoxia or hypercapnia; G43.909 Migraine, unspecified, not intractable, without status migrainosus; G35 Multiple sclerosis; G47.33 Obstructive sleep apnea (adult) (pediatric); M79.7 Fibromyalgia; K21.9 Gastro-esophageal reflux disease without esophagitis; E55.9 Vitamin D deficiency, unspecified; N40.1 Benign prostatic hyperplasia with lower urinary tract symptoms; M19.90 Unspecified osteoarthritis, unspecified site; G89.29 Other chronic pain; M54.9 Dorsalgia, unspecified; F17.200 Nicotine dependence, unspecified, uncomplicated; F41.9 Anxiety disorder, unspecified; R11.0 Nausea; R19.7 Diarrhea, unspecified; R33.8 Other retention of urine; R35.0 Frequency of micturition; R73.9 Hyperglycemia, unspecified; Z20.818 Contact with and (suspected) exposure to other bacterial communicable diseases; Z20.822 Contact with and (suspected) exposure to COVID-19; Z20.828 Contact with and (suspected) exposure to other viral communicable diseases; Z79.899 Other long term (current) drug therapy
CPT/HCPCS: 36415; 71045; 80048; 80053; 83036; 83690; 83735; 84484; 85025; 87040; 87633; 93005; 96365; 99285; A9270; J1650; J7120; Q0162; 87507; J8499

== ENCOUNTER 2023-12-01 15:30 | Outpatient (CLI) | payer OTHER, MEDICARE ==
--- NOTE | 2023-12-01 16:11 | XRAY Report ---
PROCEDURE: Chest 2V INDICATIONS: COUGH TECHNIQUE: 2 views of the chest were acquired. COMPARISON: 09/25/2023. FINDINGS: Surgical changes and devices: None. Lungs and pleura: No pleural effusions or pneumothorax. There are some mild patchy interstitial infi ltrates scattered throughout the patient's right lung. Mediastinum: Mediastinal contours appear normal. Heart size is normal. Bones and chest wall: No suspicious bony lesions. Overlying soft tissues appear unremarkable. IMPRESSION: Mild patchy interstitial infiltrates scattered throughout the patient's right lung. Reviewed by: Bravo Wilder MD on 12/01/2023 4:10 PM PDT Approved by: Bravo Wilder MD on 12/01/2023 4:10 PM PDT Station ID: [id number]
== END 2023-12-01 15:45 | disposition home or self-care (01) ==
LOC: DI.N 15:30
PROVIDERS: ATTEND Family Medicine
DX: R05.9 Cough, unspecified (principal); R91.8 Other nonspecific abnormal finding of lung field